=== PATIENT | female | born 1950 | race Caucasian/White ===

== ENCOUNTER → 2017-12-23 09:11 | Outpatient (CLI) | payer MEDICARE, OTHER, SELFPAY ==
--- NOTE | 2017-12-23 09:20 | US_ITS ---
US abdomen complete Ordering Physician: Amadeo Foster Patient Age: 67 years: Female HISTORY: ITS.REASON: ABD PAIN TECHNIQUE: Ultrasound right upper quadrant COMPARISON : FINDINGS Pancreas. Unremarkable Liver. No focal lesions. No blood ductal dilatation. Gallbladder. Trace sludge no gallstones. Common duct normal diameter 2.5 mm and hilum of liver. Spleen. Scattered fairly numerous calcifications at spleen likely account for the echogenic foci. Spleen appears normal size measuring just over 10 cm length Aorta. Atheromatous calcification but no aneurysmal dilatation aorta. Actually relatively modest Slender caliber aorta 1.5 cm proximally & tapering to 1. 2 cm distally. Kidneys appear normal in size and cortex well-maintained. No hydronephrosis nor mass. Right kidney 11 cm length x 4 cm x 5.7 cm Left kidney 10.3 cm in length and 4.5 cm x 4.65 cm. IMPRESSION: ======= No prominent findings. Minor observations Gallbladder. Trace sludge. No gallstones. Liver. Perhaps subtle fatty changes. No focal lesions. Minimal developing atheromatous changes at aorta. No aneurysm Pancreas, kidneys unremarkable.
--- NOTE | 2017-12-23 09:21 | FL_ITS ---
FL upper GI w air, [place] upper GI esophagus w/air Ordering Physician: Amadeo Foster Patient Age: 67 years: Female HISTORY: ITS.REASON: ABD PAINright upper quadrant and upper abdominal pain TECHNIQUE: Air-contrast UGI. 2 minutes 39 seconds. COMPARISON :Chest PA and lateral 03/12/2013. Thyroid ultrasound February 2013 FINDINGS . ESOPHAGUS... Minor observations Cervical Esophagus:. slight indentation upon right aspect lower lower cervical esophagus prominent right thyroid gland. Previous ultrasound and shown the right lobe to be slightly larger than the left and it does slightly indent the lower cervical esophagus. Just inferior to this at the level of sternal notch there is generous indentation upon the lower cervical esophagus due to either prominence of a low cricopharyngeus muscle; however this indentation could well be due to a generous vascular structure indentation. Cannot totally exclude a high aberrant subclavian. However Patient reports no symptoms in this region to raise concern regarding this incidental observation. If Symptoms develop here may warrant with CT neck and chest contrast to further evaluate. Also note cervical degenerative changes with disc space narrowing & cervical spondylosis C5/6 & C6/7. Anterior marginal osteophytes here do not significantly impact the cervical esophagus . Thoracic esophagus: Overall Appears satisfactory The GE junction tapers but is distensible with with no lesion evident. But Mild GE reflux was noted Remaining UGI Stomach Pylorus and Duodenal bulb and loop appear normal... Proximal small bowel appears normal. Normal mucosal pattern. There is fairly rapid transit into the small bowel final film shows contrast passing into the right colon but no small bowel dilatation or obstruction on this image. -----IMPRESSION-------- 1. Stomach, pylorus and duodenum unremarkable this survey study. WNL with No ulceration or filling defect. 2. Mild GE reflux noted. 3. Minor incidental observations cervical esophagus. .... Slight indentation lower cervical esophagus due to the prominent right thyroid lobe,. ... More inferiorly at junction of cervical & thoracic esophagus, note generous posterior indentation esophagus either due to a prominent low cricopharyngeus muscle or possibly prominent vascular structure. However the patient reported no symptoms here.. Note comments in text
== END ==
PROVIDERS: Family Provider Internal Medicine; PCP Internal Medicine; Visit Provider Internal Medicine
DX: R10.11 Right upper quadrant pain (principal)
CPT/HCPCS: 74241; 74247; 76700

== ENCOUNTER → 2018-07-04 11:17 | Outpatient (CLI) | payer MEDICARE, OTHER, SELFPAY ==
[2018-07-04 14:26] LABS: Anion Gap 11.1 mEq/L (5-15); Blood Urea Nitrogen 16 mg/dL (7-18); Calcium 8.9 mg/dL (8.5-10.1); Carbon Dioxide 30 mmol/L (21.0-32.0); Chloride 103 mmol/L (98-107); Creatinine,Serum 0.84 mg/dL (0.55-1.02); Estimated Glomerular Filt Rate 68 ml/min (>60); Free T4 (Free Thyroxine) 1.42 ng/dl (0.76-1.46); GFR (African American) 82 ML/MIN (>60); Glucose 99 mg/dL (74-106); Magnesium 1.8 mg/dL (1.4-2.2); Potassium 4.1 mmoL/L (3.5-5.1); Sodium 140 mmol/L (136-145); Thyroid Stimulating Hormone 0.84 uIU/ml (0.358-3.740)
== END ==
PROVIDERS: Visit Provider Physician Assistant
DX: Z51.81 Encounter for therapeutic drug level monitoring (principal); R42 Dizziness and giddiness; I25.10 Atherosclerotic heart disease of native coronary artery without angina pectoris; I48.91 Unspecified atrial fibrillation
CPT/HCPCS: 36415; 80048; 83735; 84439; 84443; 93225; 93226

== ENCOUNTER → 2018-08-07 08:49 | Outpatient (CLI) | payer MEDICARE, OTHER, SELFPAY ==
--- NOTE | 2018-08-07 09:07 | CI_ITS ---
Cerebrovascular Exam Indications: 780.2 Syncope and collapse. IMPRESSIONS 1. The bilateral vertebral arteries are patent with normal antegrade flow. 2. Study suggests less than 20% stenosis involving the right internal carotid artery and the left internal carotid artery. Carotid duplex study. Complete study and Doppler flow study including spectral analysis, color and pineda scale imaging. Height: Height: 154.9cm. Height: 61in. Weight: Weight: 72.6kg. Weight: 159.7lb. Body mass index: BMI: 30.2kg/m^2. Body surface area: BSA: 1.79m^2. Location: Vascular laboratory. Patient status: Outpatient. Tables: Arterial flow: + +--------+--------+ Location V sys V ed + +--------+--------+ Right CCA - proximal 78.6cm/s 18.9cm/s + +--------+--------+ Right CCA - distal 67.8cm/s 22.6cm/s + +--------+--------+ Right ECA 87.1cm/s -------- + +--------+--------+ Right ICA - proximal 56.8cm/s 19.9cm/s + +--------+--------+ Right ICA - mid 56.2cm/s 21.5cm/s + +--------+--------+ Right ICA - distal 70.6cm/s 29.8cm/s + +--------+--------+ Right vertebral 53.5cm/s -------- + +--------+--------+ Left CCA - proximal 70.6cm/s 24.3cm/s + +--------+--------+ Left CCA - distal 60.1cm/s 18.2cm/s + +--------+--------+ Left ECA 102cm/s -------- + +--------+--------+ Left ICA - proximal 55.2cm/s 18.9cm/s + +--------+--------+ Left ICA - mid 70.7cm/s 27.9cm/s + +--------+--------+ Left ICA - distal 60.2cm/s 24.4cm/s + +--------+--------+ Left vertebral 36.7cm/s -------- + +--------+--------+ Velocity ratios: + + + + + + Right, V sys Right, V ed Left, V sys Left, V ed + + + + + + Max ICA/dist CCA 1.04 1.32 1.18 1.53 + + + + + + (Report amended ) Electronically signed by: Primo Ryan [id number]
--- NOTE | 2018-08-07 09:08 | CA_ITS ---
PROCEDURE: 2-D M-mode and color Doppler study INDICATIONS FOR THE TEST: Chest pain COPD Heart Murmur Tobacco Smoking Palpitations Fatigue SyncopeX Edema HypertensionXDiabetes Mellitus Rheumatic Fever SOB MILLER Obesity Hyperlipidemia Family History HD Additional History DIZZINESS,TIA ,PACEMAKER BUBBLE STUDY DONE PATIENT INFORMATION HEIGHT: 61 WEIGHT:160 GENDER: Female B/P:133/77 2-D/M-MODE INTERPRETATION: 2-D MEASUREMENTS OBSERVED VALUES IN CMS Right Ventricular Dimension (RVDd) 1.3 Interventricular Septum (Thickness)(IVsd) .6 Left Ventricular Internal Dimensions(LVIDd) 5.7 Left Ventricular Posterior Wall (Thickness)(LVPWd) .7 Aortic Root 2.9 Aortic Cusp Separation 1.8 Left Atrial Dimensions (LAD) 2.9 2D 1. Left atrium is mildly enlarged, left ventricle is normal size, mild concentric left ventricular hypertrophy, visually estimated ejection fraction 55% with no regional wall motion abnormality, there is abnormal septal motion. 2. The right atrium and right ventricle are normal size and contractility, there is a pacemaker lead seen right atrium and right ventricle. 3. The aortic valve is minimally thickened and fibrosed leaflet, display mobility. 4. The mitral and tricuspid valve leaflets are minimally thickened. 5. The pulmonic valve is poorly visualized. 6. No significant pericardial effusion noted. DOPPLER INTERROGATION: Doppler interrogation of the aortic, mitral and tricuspid valvular presence of mild mitral and tricuspid regurgitation, calculated right ventricular systolic pressure is 39 mmHg consistent with mild pulmonary hypertension, grade 2 diastolic dysfunction seen with tissue Doppler evidence of raised left atrial pressure. Agitated saline contrast study fails to identify intracardiac shunt. CONCLUSION: 1. Mildly enlarged left atrium, normal left ventricular size, mild concentric left ventricular hypertrophy, visually estimated ejection fraction 55% with no regional wall motion abnormality, there is abnormal septal motion, grade 2 diastolic dysfunction seen with tissue Doppler evidence of raised left atrial pressure. 2. Mild mitral and tricuspid regurgitation, calculated right ventricular systolic pressure 39 mmHg consistent with mild pulmonary hypertension. 3. No significant pericardial effusion noted. 4. Agitated saline contrast study fails to identify intracardiac shunt.
== END ==
PROVIDERS: PCP Internal Medicine; Visit Provider Physician Assistant
DX: R55 Syncope and collapse (principal); R42 Dizziness and giddiness; G45.9 Transient cerebral ischemic attack, unspecified
CPT/HCPCS: 93306; 93880

== ENCOUNTER → 2018-09-19 09:53 | Outpatient (CLI) | payer MEDICARE, OTHER, SELFPAY ==
[2018-09-19 11:09] LABS: Erythrocyte Sedimentation Rate 10 mm/hr (0-30)
[2018-09-19 14:42] LABS: Blood Urea Nitrogen 20 mg/dL (7-18); Calcium 9.4 mg/dL (8.5-10.1); Carbon Dioxide 28 mmol/L (21.0-32.0); Chloride 103 mmol/L (98-107); Creatinine,Serum 0.73 mg/dL (0.55-1.02); Estimated Glomerular Filt Rate 80 ml/min (>60); GFR (African American) 97 ML/MIN (>60); Glucose 101 mg/dL (74-106); Sodium 140 mmol/L (136-145)
[2018-09-20 15:16] LABS: Anti-Centromere B Antibodies <0.2 AI (0.0-0.9); Anti-Jo-1 <0.2 AI (0.0-0.9); Anti-Smith Antibody <0.2 AI (0.0-0.9); Antichromatin Antibodies <0.2 AI (0.0-0.9); Antiscleroderma-70 Antibodies 0.2 AI (0.0-0.9); RNP Antibodies <0.2 AI (0.0-0.9); Sjogren's Anti-SS-A 6.4 AI (0.0-0.9); Sjogren's Anti-SS-B 0.2 AI (0.0-0.9)
[2018-09-20 17:08] LABS: Anti-DNA (DS) Ab Qn 1 IU/mL (0-9)
== END ==
PROVIDERS: PCP Internal Medicine; Visit Provider Specialist
DX: R42 Dizziness and giddiness (principal); R55 Syncope and collapse
CPT/HCPCS: 36415; 80048; 85651; 86225; 86235

== ENCOUNTER → 2018-09-27 08:43 | Outpatient (CLI) | payer MEDICARE, OTHER, SELFPAY ==
--- NOTE | 2018-09-27 08:45 | CT_ITS ---
CT angio neck INDICATION: ITS.REASON: dizziness, lightheaded ORDERING PHYSICIAN: Mery Motta MD PATIENT AGE: 68 years COMPARISON: None TECHNIQUE: Axial images are obtained following the intravenous administration of 100 mL of Isovue-370 performed in conjunction with the neck CT angiogram . Sagittal and coronal reformatted images are reviewed as well. All CT scans at the facility use one or more dose reduction, viz: automated exposure control, ma/kV adjustment per patient size (including targeted exams where dose is matched to indication, i.e. head), or iterative reconstruction technique. FINDINGS: No aneurysm, arteriovenous malformation, or major intracranial occlusive process evident. No enhancing lesions IMPRESSION: Negative CT angiogram of the head
--- NOTE | 2018-09-27 08:45 | CT_ITS ---
CT angio head INDICATION: ITS.REASON: dizziness, lightheaded ORDERING PHYSICIAN: Mery Motta MD PATIENT AGE: 68 years COMPARISON: None TECHNIQUE: Axial images are obtained following the intravenous administration of 100 mL of Isovue-370 contrast. Sagittal and coronal reformatted images are reviewed as well. All CT scans at the facility use one or more dose reduction, viz: automated exposure control, ma/kV adjustment per patient size (including targeted exams where dose is matched to indication, i.e. head), or iterative reconstruction technique. FINDINGS: There is an apparent right subclavian artery traverses posterior to the esophagus. There is a common origin trunk of the right and left carotid arteries. The vertebrals have an unremarkable appearance. The left side is dominant. Right carotid: Right common carotid is unremarkable. The carotid bifurcation and internal carotid artery also have an unremarkable appearance. No stenotic lesions evident. Left carotid: Unremarkable. Left common carotid artery. There is a small amount of calcific plaque at the ostium of the left internal carotid artery but no significant stenosis. Only approximately 20% stenosis of the origin of the left internal carotid artery. Incidental note is made of a 5 mm noncalcified left upper lobe nodule nonspecific IMPRESSION: 1. Aberrant origin of the right subclavian artery. 2. There is a small amount of calcific plaque at the ostium of the left internal carotid artery causing approximately 20% stenosis. 3. 5 mm noncalcified left upper lobe nodule
--- NOTE | 2018-09-27 09:35 | CT_ITS ---
CT head/brain wo/w con HISTORY: ITS.REASON: lightheaded, dizziness, syncope ORDERING PHYSICIAN: Mery Motta MD PATIENT AGE: 68 years COMPARISON: none TECHNIQUE: Axial images obtained without and with contrast. 100 mL Isovue 300 was given IV. Brain and bone windows reviewed. All CT scans at the facility use one or more dose reduction, viz: automated exposure control, ma/kV adjustment per patient size (including targeted exams where dose is matched to indication, i.e. head), or iterative reconstruction technique. FINDINGS: No midline shift, mass effect, intracranial hemorrhage, hydrocephalus, or extra-axial fluid collection is evident. Axial masses or hemorrhage. The calvarium has an unremarkable appearance. No mastoid effusion. No sinus air-fluid levels.. There is a small osteoma in the right frontal area IMPRESSION: Negative CT head without and with contrast
--- NOTE | 2018-09-27 10:10 | HMH.ITSHM ---
Current Home Medications as stated by this patient Phyllis William or wholesale representative. []PRADAXA,LEVOTHYROXINE,STALOL,ATENOLOL,LOSARTIN, ASPIRIN,ROSURVASTATIN
== END ==
PROVIDERS: PCP Internal Medicine; Visit Provider Specialist
DX: R42 Dizziness and giddiness (principal); R55 Syncope and collapse
CPT/HCPCS: 70470; 70496; 70498; Q9967

== ENCOUNTER → 2019-06-14 12:44 | Outpatient (CLI) | payer MEDICARE, OTHER, SELFPAY ==
--- NOTE | 2019-06-14 12:48 | CA_ITS ---
APPROVED REPORT Instructional Coordinator: SHELIA Laterality: Bilateral Study Quality: Adequate Indications: Claudication: Risk Factors Hypertension Hyperlipidemia Cardiac Disease CAD, VELOCITY AND DOPPLER WAVEFORM ANALYSIS RIGHT cm/sec Waveform Severity RESIDENT ASSISTANT 122.5/ Triphasic PFA 79.7/ Triphasic Prox SFA 68.4/ Triphasic Mid SFA 86.8/ Triphasic Dis SFA 89.9/ Triphasic POP 64.9/ Triphasic Post Tibial 101.9/ Triphasic Ant Tib/Dors Ped 38.8/ Triphasic Peroneal 28.7/ Triphasic LEFT cm/sec Waveform Severity RESIDENT ASSISTANT 71.6/ Triphasic PFA 87.3/ Triphasic Prox SFA 67.4/ Triphasic Mid SFA 63.1/ Triphasic Dis SFA 87.3/ Triphasic POP 69.6/ Triphasic Post Tibial 78.6/ Triphasic Ant Tib/Dors Ped 67.9/ Triphasic Peroneal 36.9/ Triphasic Findings No significant elevation of the peak systolic velocity is seen in either lower extremity to suggest a hemodynamically significant stenosis. Conclusion No significant elevation of the peak systolic velocity is seen in either lower extremity to suggest a hemodynamically significant stenosis. Electronically signed by : Primo Ryan MD 06/14/2019 19:16:54
--- NOTE | 2019-06-14 12:50 | US_ITS ---
APPROVED REPORT Exam Type: Lower Extremity Segmental Pressures Bioinformatics Support Specialist: Gail Simmons RDCS Indications Claudication: Risk Factors Hypertension CAD Hyperlipidemia Cardiac Disease Pressures/Indices Right Indices Left Indices Brachial 143.00 mmHg Brachial 131.00 mmHg Low Thigh 156.00 mmHg 1.09 Low Thigh 136.00 mmHg 0.95 Calf 147.00 mmHg 1.03 Calf 150.00 mmHg 1.05 Ankle(PT) 153.00 mmHg 1.07 Ankle(PT) 144.00 mmHg 1.01 Ankle(DP) 144.00 mmHg 1.01 Ankle(DP) 141.00 mmHg 0.99 Digit 130.00 mmHg 0.91 Digit 114.00 mmHg 0.80 Findings R WING 1.1 R TBI .9 L WING 1.0 L TBI .8 NORMAL PULSES AND WAVEFORMS Conclusion No evidence significant arterial disease throughout the right and left lower extremities as evidenced by normal resting PVR waveforms and normal resting indices. Electronically signed by : Primo Ryan MD 06/14/2019 19:15:31
== END ==
PROVIDERS: PCP Internal Medicine; Visit Provider Internal Medicine Cardiovascular Disease
DX: I70.213 Atherosclerosis of native arteries of extremities with intermittent claudication, bilateral legs (principal); M79.605 Pain in left leg; M79.604 Pain in right leg
CPT/HCPCS: 93923; 93925

== ENCOUNTER → 2019-06-29 15:04 | Outpatient (CLI) | payer MEDICARE, OTHER, SELFPAY ==
--- NOTE | 2019-06-29 15:08 | XR_ITS ---
PROCEDURE: XR CHEST 2V CLINICAL HISTORY: RT UPPER CHEST PAIN Cough and congestion COMPARISON: CXR CHEST(2 VIEWS-NOT PORTABLE) from 03/12/2013 CXR1 CHEST-PORTABLE from 07/06/2013 CXR2V XR chest 2V from 07/02/[address] angio neck from 09/27/2018 FINDINGS: Borderline cardiomegaly without failure. Cardiac pacemaker is present by the left subclavian approach through a duplicated superior vena cava with the pacemaker tip along the right heart border in the right atrial region. Chronic changes are present in the right perihilar region. No lobar consolidation or collapse is evident. IMPRESSION: Chronic changes in the right perihilar region. No change with no acute finding. Dictated by: Primo Ryan MD 06/29/2019 15:22 Electronically signed by Primo Ryan MD in [facility] 06/29/2019 15:22
== END ==
PROVIDERS: PCP Internal Medicine; Visit Provider Internal Medicine
DX: R07.89 Other chest pain (principal)
CPT/HCPCS: 71046

== ENCOUNTER 2020-03-06 14:23 | Emergency (ER) | payer MEDICARE, OTHER, SELFPAY ==
[2020-03-06 14:24] VITALS: BP 151/74; PULSE 70; RESP 18; TEMP 36.7; O2SAT 98; BMI 31.1
--- NOTE | 2020-03-06 14:37 | CT_ITS ---
PROCEDURE: CT CERVICAL SPINE WO CON CLINICAL INDICATION: Fall Neck injury with pain, contusion/abrasion or hematoma, cervical sprain/strain the COMPARISON: No exams were available for comparison TECHNIQUE: Axial images obtained with sagittal and coronal reformats. All CT scans at the facility use one or more dose reduction, viz: automated exposure control, ma/kV adjustment per patient size (including targeted exams where dose is matched to indication, i.e. head), or iterative reconstruction technique. Axial spiral CT scanning performed of the cervical spine beginning at the base of the skull and continuing to the upper T-spine. 3-D multiplanar reconstruction with 3-D manipulation of volumetric data set in image rendering was completed by the radiologist and/or technologist with the supervision of the radiologist on independent workstation. FINDINGS: Normal alignment. No acute fracture or dislocation. Bifid spinous process with prominent right portion of the spinous process at C3. Degenerative disc disease C4-C5. Mild right uncovertebral hypertrophy C5-C6 with mild right lateral recess narrowing IMPRESSION: Degenerative changes, no acute fracture Dictated by: Primo Ryan MD 03/06/2020 15:24 Electronically signed by Primo Ryan MD in [facility] 03/06/2020 15:24
--- NOTE | 2020-03-06 14:37 | CT_ITS ---
PROCEDURE: CT FACIAL BONES WO CON CLINICAL HISTORY: Fall Blunt trauma with injury and pain, contusion/abrasion or hematoma following injury, nasal injury with pain COMPARISON: AGHEAD CT angio head from 09/27/2018 TECHNIQUE: Axial images obtained with sagittal and coronal reformats. All CT scans at the facility use one or more dose reduction, viz: automated exposure control, ma/kV adjustment per patient size (including targeted exams where dose is matched to indication, i.e. head), or iterative reconstruction technique. FINDINGS: There is a nondisplaced fracture involving the bilateral nasal ala and the tip of the nasal bone. A lucency is present in the mid aspect of the nasal septum image 42 series 3. This however may be chronic. There is a small air-fluid level in the right maxillary sinus. No other fractures are evident. There is a small osteoma in the right aspect of the frontal sinus. Soft tissue swelling is present at the nasal region and the anterior nasal canal IMPRESSION: Nondisplaced nasal bone fracture. Dictated by: Primo Ryan MD 03/06/2020 15:32 Electronically signed by Primo Ryan MD in [facility] 03/06/2020 15:32
--- NOTE | 2020-03-06 14:37 | CT_ITS ---
PROCEDURE: CT HEAD/BRAIN WO CON CLINICAL INDICATION: Fall COMPARISON: HEADWW CT head/brain wo/w con from 09/27/2018 TECHNIQUE: Axial images obtained. All CT scans at the facility use one or more dose reduction, viz: automated exposure control, ma/kV adjustment per patient size (including targeted exams where dose is matched to indication, i.e. head), or iterative reconstruction technique. FINDINGS: No midline shift, mass effect, intracranial hemorrhage, hydrocephalus, or extra-axial fluid collection is evident. The calvarium has an unremarkable appearance. No mastoid effusion. No sinus air-fluid level. IMPRESSION: No acute intracranial finding Dictated by: Primo Ryan MD 03/06/2020 15:21 Electronically signed by Primo Ryan MD in [facility] 03/06/2020 15:21
[2020-03-06 14:57] VITALS: BP 143/83; PULSE 70; RESP 18; O2SAT 100
--- NOTE | 2020-03-06 15:01 | PC.NURSE ---
pt going to rad
--- NOTE | 2020-03-06 15:47 | HMH.EDFALL ---
ED Disposition Clinical Impression: Nasal bone fracture, Bleeding nose Disposition: Home, Self-Care Condition on Discharge: Good Instructions: Nose Fracture Prescriptions: Hydrocod/Acet 5/325 mg [[place] 5/325mg tablet] 1 tab PO Q6HP PRN #7 tab PRN Reason: Moderate Pain Prescription Printed Referrals: Amadeo Foster [Primary Care Provider] - Paul Jacobson MD [Staff Physician] - 3 days - Critical Care Critical Care Time: No Attestation: On 03/06/20, the high probability of a clinically significant, sudden or life threatening deterioration of the following system(s) required my full and direct attention, intervention and personal management. The time I documented below is in addition to time spent performing reported procedures but includes the following listed in this critical care notation. Medical Decision Making - Medical Records Medical records reviewed: Yes: I reviewed the patient's medical records. - Jasson Inquiry Pt receiving controlled substance: Yes Jasson was queried for this patient: No Reason not queried -: Jasson system downtime Risks and benefits of using a controlled substance: were discussed with pt by me Vital Signs: 03/06/20 14:24 03/06/20 14:57 03/06/20 15:52 Temperature 98.1 F Temperature Source Oral Pulse Rate [Right] 70 70 66 Respiratory Rate 18 18 18 Blood Pressure [Right Arm] 151/74 H 143/83 H 168/86 H Blood Pressure Mean [Right Arm] 99 103 113 Blood Pressure Source [Right Arm] Automatic Cuff Automatic Cuff Blood Pressure Position [Right Arm] Sitting Sitting 02 Sat by Pulse Oximetry 98 100 98 Oxygen Delivery Method Room Air Room Air Orders (Tests/Meds): ED MEDICATIONS Discontinued Medications Generic Name Dose Route Start Last Admin Trade Name Freq PRN Reason Stop Dose Admin Hydrocodone Bitart/Acetaminophen 1 tab 03/06/20 14:44 03/06/20 15:01 [place] 5/325mg Tablet PO 03/06/20 14:45 1 tab ONCE ONE Administration - Radiology Data #2 FINDINGS: There is a nondisplaced fracture involving the bilateral nasal ala and the tip of the nasal bone. A lucency is present in the mid aspect of the nasal septum image 42 series 3. This however may be chronic. There is a small air-fluid level in the right maxillary sinus. No other fractures are evident. There is a small osteoma in the right aspect of the frontal sinus. Soft tissue swelling is present at the nasal region and the anterior nasal canal IMPRESSION: Nondisplaced nasal bone fracture. #3 FINDINGS: Normal alignment. No acute fracture or dislocation. Bifid spinous process with prominent right portion of the spinous process at C3. Degenerative disc disease C4-C5. Mild right uncovertebral hypertrophy C5-C6 with mild right lateral recess narrowing IMPRESSION: Degenerative changes, no acute fracture - CT Data CT Scan: Head Time Received: 15:54 Findings Narrative: FINDINGS: No midline shift, mass effect, intracranial hemorrhage, hydrocephalus, or extra-axial fluid collection is evident. The calvarium has an unremarkable appearance. No mastoid effusion. No sinus air-fluid level. IMPRESSION: No acute intracranial finding - Reevaluation(s) Time: 15:59 Reevaluation #1: On reevaluation, the patient's pain has improved. There is no evidence of bleeding. Repeat exam does not show any septal hematoma. Patient has evidence of a nondisplaced nasal fracture. Patient will given ENT follow-up. Given strict return precautions. Verbalized understanding. Medical Decision Narrative: 69-year-old female presented to the emergency department after accidental A fall. Patient has significant swelling of the nose. Concerning for nasal bone fracture. There is no active bleeding from the nasal nares at this time. No evidence of posterior bleed. Patient meets imaging criteria for the head and cervical spine. Fall HPI - General Chief Compla
[2020-03-06 15:52] VITALS: BP 168/86; PULSE 66; RESP 18; O2SAT 98
--- NOTE | 2020-03-06 15:53 | PC.NURSE ---
checked on pt to see if see needed anything
[2020-03-06 16:04] VITALS: BP 161/90; PULSE 80; RESP 18; TEMP 36.8; O2SAT 98
== END 2020-03-06 16:13 | disposition home or self-care (01) ==
PROVIDERS: Emergency Provider Emergency Medicine; PCP Internal Medicine
DX: S02.2XXA Fracture of nasal bones, initial encounter for closed fracture (principal); W01.198A Fall on same level from slipping, tripping and stumbling with subsequent striking against other object, initial encounter; Y92.480 Sidewalk as the place of occurrence of the external cause; I25.10 Atherosclerotic heart disease of native coronary artery without angina pectoris; I48.91 Unspecified atrial fibrillation; I25.2 Old myocardial infarction; E03.9 Hypothyroidism, unspecified; Z79.899 Other long term (current) drug therapy
CPT/HCPCS: 70450; 70486; 72125; 99282

== ENCOUNTER → 2020-03-12 10:06 | Outpatient (CLI) | payer MEDICARE, OTHER, SELFPAY ==
[2020-03-12 10:28] LABS: Basophils # 0.1 K/mm3 (0-0.2); Basophils % 0.6 % (0.1-2.0); Eosinophils # 0.2 K/mm3 (0.0-0.4); Eosinophils % 2.6 % (0.1-12.0); Hematocrit 44.9 % (37.0-47.0); Hemoglobin 15.1 g/dL (12.2-16.2); Lymphocytes # 2.3 K/mm3 (0.7-4.5); Lymphocytes % 26.3 % (10-50); Mean Corpuscular HGB Conc 33.8 g/dL (31.8-35.4); Mean Corpuscular Hemoglobin 31.1 pg (27.0-31.2); Monocytes # 0.6 K/mm3 (0.1-1.0); Monocytes % 6.5 % (1.7-9.3); Neutrophils # 5.5 K/mm3 (1.8-7.8); Platelet Count 198 K/mm3 (142-424); Red Blood Count 4.87 M/mm3 (4.20-5.40); Red Cell Distribution Width 13.3 % (11.5-17.5); White Blood Count 8.6 K/mm3 (4.8-10.8)
[2020-03-12 15:52] LABS: Chloride 100 mmol/L (98-107); Potassium 4.6 mmoL/L (3.5-5.1); Sodium 141 mmol/L (136-145)
[2020-03-12 15:54] LABS: Alanine Aminotransferase 22 U/L (12-78); Anion Gap 14.6 mEq/L (5-15); Aspartate Amino Transferase 33 U/L (14-36); Blood Urea Nitrogen 18 mg/dl (7-17); Carbon Dioxide 31 mmol/L (22.0-30.0); Estimated Glomerular Filt Rate 83 ml/min (>60); GFR (African American) 101 ML/MIN (>60)
[2020-03-12 15:55] LABS: Albumin Level 4.2 g/dl (3.5-5.0); Albumin/Globulin Ratio 1.4 (1.1-1.8); Alkaline Phosphatase 64 U/L (38-126); Calcium 9.5 mg/dl (8.4-10.2); Glucose 105 mg/dl (74-100); HDL Cholesterol 49 mg/dl (40-60); Total Protein,Serum 7.2 g/dl (6.3-8.2)
[2020-03-12 15:56] LABS: Cholesterol 147 mg/dl (140-200); Triglycerides 143 mg/dl (30-150); VLDL Cholesterol 29 mg/dL (0-40)
[2020-03-12 16:06] LABS: Direct LDL Cholesterol 79.94 mg/dL (100-129)
== END ==
PROVIDERS: Visit Provider Internal Medicine
DX: I10 Essential (primary) hypertension (principal); I25.10 Atherosclerotic heart disease of native coronary artery without angina pectoris; E78.5 Hyperlipidemia, unspecified
CPT/HCPCS: 36415; 80053; 80061; 85025

== ENCOUNTER 2021-01-14 12:21 | Emergency (ER) | payer MEDICARE, OTHER, SELFPAY ==
[2021-01-14 12:22] VITALS: BP 159/91; PULSE 70; RESP 18; TEMP 36.6; O2SAT 97; BMI 31.5
--- NOTE | 2021-01-14 12:25 | ECG_ITS ---
APPROVED REPORT Exam: Resting ECG HR:72 bpm ECG Measurements Heart Rate 72 AXES QRSd 120 QRS -59 QT 470 T -10 QTc 514 Conclusion Electronic atrial pacemaker Left axis deviation Right bundle branch block Abnormal ECG Electronically signed by : Gary Colon, 01/16/2021 09:07:58
[2021-01-14 12:30] VITALS: BP 154/85; PULSE 64; RESP 14; O2SAT 99
[2021-01-14 12:53] LABS: Basophils # 0.1 K/mm3 (0-0.2); Basophils % 1.4 % (0.1-2.0); Eosinophils # 0.3 K/mm3 (0.0-0.4); Eosinophils % 2.6 % (0.1-12.0); Hematocrit 45.7 % (37.0-47.0); Hemoglobin 15.2 g/dL (12.2-16.2); Lymphocytes # 3.1 K/mm3 (0.7-4.5); Lymphocytes % 29.7 % (10-50); Mean Corpuscular HGB Conc 33.3 g/dL (31.8-35.4); Mean Corpuscular Hemoglobin 29.7 pg (27.0-31.2); Mean Corpuscular Volume 89.3 fl (81-99); Mean Platelet Volume 8.3 fl (7.4-10.4); Monocytes # 0.8 K/mm3 (0.1-1.0); Monocytes % 7.5 % (1.7-9.3); Neutrophils # 6.2 K/mm3 (1.8-7.8); Neutrophils % 58.7 % (37.0-80.0); Platelet Count 249 K/mm3 (142-424); Red Blood Count 5.11 M/mm3 (4.20-5.40); Red Cell Distribution Width 13.7 % (11.5-17.5); White Blood Count 10.6 K/mm3 (4.8-10.8)
[2021-01-14 12:56] LABS: Chloride 104 mmol/L (98-107); Sodium 139 mmol/L (136-145)
[2021-01-14 12:59] LABS: Alanine Aminotransferase 28 U/L (12-78); Albumin Level 4.7 g/dl (3.5-5.0); Albumin/Globulin Ratio 1.4 (1.1-1.8); Alkaline Phosphatase 82 U/L (38-126); Aspartate Amino Transferase 43 U/L (14-36); Bilirubin,Total 1.1 mg/dl (0.2-1.3); Blood Urea Nitrogen 22 mg/dl (7-17); Carbon Dioxide 25 mmol/L (22.0-30.0); Creatinine Clearance Estimated 64 mL/min (50-200); Estimated Glomerular Filt Rate 83 ml/min (>60); GFR (African American) 101 ML/MIN (>60); Globulin 3.3 g/dL (1.3-3.2)
[2021-01-14 13:00] LABS: Calcium 10.1 mg/dl (8.4-10.2); Glucose 161 mg/dl (74-100)
[2021-01-14 13:01] VITALS: BP 163/91; PULSE 71; RESP 16; O2SAT 100
--- NOTE | 2021-01-14 13:04 | CT_ITS ---
PROCEDURE: CT HEAD/BRAIN WO CON CLINICAL INDICATION: constant vertigo, afib on Eliquis COMPARISON: CT CT HEAD/BRAIN WO CON from 03/06/2020 TECHNIQUE: Axial images obtained. All CT scans at the facility use one or more dose reduction, viz: automated exposure control, ma/kV adjustment per patient size (including targeted exams where dose is matched to indication, i.e. head), or iterative reconstruction technique. FINDINGS: No midline shift, mass effect, intracranial hemorrhage, hydrocephalus, or extra-axial fluid collection is evident. The calvarium has an unremarkable appearance. No mastoid effusion. There is a small air-fluid level in the right maxillary sinus mild mucosal thickening of the ethmoid sinuses and a small osteoma in the right frontal IMPRESSION: No acute intracranial finding Mild sinus disease Dictated by: Primo Ryan MD 01/14/2021 13:58 Primo Ryan MD in [facility] 01/14/2021 13:58
--- NOTE | 2021-01-14 13:04 | CT_ITS ---
Procedure: CT ANGIO NECK CTA HEAD CLINICAL HISTORY: constant vertigo, afib on Eliquis COMPARISON: CT AGNECK CT angio neck from 09/27/[address] ANGIO HEAD from 01/14/2021 TECHNIQUE: IV Contrast: 100ml Isovue 370 Axial images obtained with sagittal and coronal reformats. All CT scans at the facility use one or more dose reduction, viz: automated exposure control, ma/kV adjustment per patient size (including targeted exams where dose is matched to indication, i.e. head), or iterative reconstruction technique. 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 Mild atheromatous changes of the aorta. The right common carotid and internal carotid are unremarkable. Unremarkable appearing left common carotid and internal carotid. There is some eccentric calcific plaque in the left vertebral artery at the C3 level causing less than 40 percent stenosis. The right vertebral artery has an unremarkable appearance. CTA head: No aneurysm, AVM, dissection, or major intracranial occlusive process apparent. There is persistent origin of the right posterior cerebral artery. No intracranial enhancing lesions. No midline shift or mass effect. Delayed images show no obvious sinus thrombosis. Upper thoracic images shows a stable 5 mm nodule in the left upper lobe. There is thickening of the upper cervical esophagus. IMPRESSION: 1. Negative CTA neck. 2. Negative CTA head Dictated by: Primo Ryan MD 01/14/2021 14:09 Primo Ryan MD in [place] 01/14/2021 14:09
--- NOTE | 2021-01-14 13:07 | HMH.EDDIZZ ---
ED Disposition Clinical Impression: Benign paroxysmal positional vertigo Qualifiers: Laterality: right Qualified Code(s): H81.11 - Benign paroxysmal vertigo, right ear Disposition: Home, Self-Care Condition on Discharge: Good Instructions: DI for Benign Paroxysmal Positional Vertigo Prescriptions: diazePAM [Valium 5mg tablets] 5 mg PO TID PRN #9 tablet PRN Reason: Vertigo Transmission Status: Received by [id number] Referrals: Amadeo Foster [Primary Care Provider] - 3 days Paul Jacobson MD [Staff Physician] - 01/16/21 - Critical Care Critical Care Time: No Attestation: On 01/14/21, the high probability of a clinically significant, sudden or life threatening deterioration of the following system(s) required my full and direct attention, intervention and personal management. The time I documented below is in addition to time spent performing reported procedures but includes the following listed in this critical care notation. Medical Decision Making - Medical Records Medical records reviewed: Yes: I reviewed the patient's medical records. - Jasson Inquiry Pt receiving controlled substance: No Vital Signs: 01/14/21 12:22 01/14/21 12:30 01/14/21 13:01 Temperature 97.9 F Temperature Source Oral Pulse Rate 64 71 Pulse Rate [Right Radial] 70 Respiratory Rate 18 14 16 Blood Pressure 154/85 H 163/91 H Blood Pressure [Right Arm] 159/91 H Blood Pressure Mean 121 115 Blood Pressure Mean [Right Arm] 113 Blood Pressure Source [Right Arm] Automatic Cuff Blood Pressure Position [Right Arm] Sitting 02 Sat by Pulse Oximetry 97 99 100 Oxygen Delivery Method Room Air 01/14/21 14:00 01/14/21 14:30 Temperature Temperature Source Pulse Rate 69 68 Pulse Rate [Right Radial] Respiratory Rate 16 16 Blood Pressure 153/85 H 154/80 H Blood Pressure [Right Arm] Blood Pressure Mean 125 128 Blood Pressure Mean [Right Arm] Blood Pressure Source [Right Arm] Blood Pressure Position [Right Arm] 02 Sat by Pulse Oximetry 94 L 97 Oxygen Delivery Method - Lab Data Lab results reviewed: Yes: I reviewed the patient's lab results. Lab Results 01/14/21 12:39: WBC 10.6, RBC 5.11, Hgb 15.2, Hct 45.7, MCV 89.3, MCH 29.7, MCHC 33.3, RDW 13.7, Plt Count 249, MPV 8.3, Neut % (Auto) 58.7, Lymph % (Auto) 29.7, [place] % (Auto) 7.5, Eos % (Auto) 2.6, Baso % (Auto) 1.4, Neut # (Auto) 6.2, Lymph # (Auto) 3.1, [place] # (Auto) 0.8, Eos # (Auto) 0.3, Baso # (Auto) 0.1 01/14/21 12:39: Sodium 139, Potassium 4.0, Chloride 104, Carbon Dioxide 25, Anion Gap 14.0, BUN 22 H, Creatinine 0.70, Estimated Creat Clear 64, Estimated GFR 83, Est GFR ( Amer) 101, Glucose 161 H, Calcium 10.1, Total Bilirubin 1.1, AST 43 H, ALT 28, Alkaline Phosphatase 82, Troponin I < 0.01, Total Protein 8.0, Albumin 4.7, Globulin 3.3 H, Albumin/Globulin Ratio 1.4 01/14/21 14:45: Urine Color Yellow, Urine Appearance Clear, Urine pH 6.0, Ur Specific [place] <= 1.005, Urine Protein Negative, Urine Glucose (UA) Negative, Urine Ketones Negative, Urine Blood Negative, Urine Nitrate Negative, Urine Bilirubin Negative, Urine Urobilinogen 0.2, Ur Leukocyte Esterase Negative Result diagrams: 01/14/21 12:39 01/14/21 12:39 Orders (Tests/Meds): ED MEDICATIONS Discontinued Medications Generic Name Dose Route Start Last Admin Trade Name Freq PRN Reason Stop Dose Admin Diazepam 5 mg 01/14/21 13:07 01/14/21 13:47 Diazepam 5mg Tablet PO 01/14/21 13:08 5 mg ONCE ONE Administration Sodium Chloride 1,000 mls @ 999 mls/hr 01/14/21 12:45 01/14/21 12:37 Sod Chlor 0.9% 1000ml Bag IV 01/14/21 13:45 999 mls/hr .Q1H1M SUJATHA Administration Iopamidol 100 ml 01/14/21 13:26 01/14/21 13:28 Iopamidol-370 (76%);100ml Bottle IV 01/14/21 13:27 100 ml ONCE ONE Administration Ondansetron HCl 4 mg 01/14/21 12:34 01/14/21 12:38 Ondansetron 4mg/2ml Vial IV 01/14/21 12:35 4 mg ONCE ONE Administration Sodium Chlorid
--- NOTE | 2021-01-14 13:10 | PC.NURSE ---
pt to CT
[2021-01-14 13:15] LABS: Troponin I < 0.01 ng/ml (0.00-0.034)
[2021-01-14 14:00] VITALS: BP 153/85; PULSE 69; RESP 16; O2SAT 94
[2021-01-14 14:30] VITALS: BP 154/80; PULSE 68; RESP 16; O2SAT 97
[2021-01-14 14:49] LABS: Microscopic, Urine URINE MICROSCOPIC (MICROSCOPIC)
--- NOTE | 2021-01-14 14:49 | PC.NURSE ---
pt to bathroom via wheelchair per staff assistance r/t pt continues to feel dizzy. Pt tolerated transfer to bed to wheelchair and up and down from toilet well. Will continue to monitor. Pt drinking gingerale at this time, family at BS
[2021-01-14 14:52] LABS: Appearance,Urine CLEAR (Clear); Bilirubin,Urine Negative (Negative); Blood, Urine Negative (Negative); Color,Urine YELLOW (Yellow); Glucose,Urine (UA) Negative (Negative); Ketones,Urine Negative (Negative); Leukocyte Esterase,Urine Negative (Negative); Nitrate,Urine Negative (Negative); Protein,Urine Negative (Negative); Specific Gravity, Urine <= 1.005 (1.005-1.030); Urobilinogen,Urine 0.2 EU/dl (0.2)
[2021-01-14 15:00] VITALS: BP 136/86; PULSE 70; RESP 16; TEMP 36.8; O2SAT 98
== END 2021-01-14 15:34 | disposition home or self-care (01) ==
PROVIDERS: Emergency Provider Emergency Medicine; PCP Internal Medicine
DX: H81.11 Benign paroxysmal vertigo, right ear (principal); I10 Essential (primary) hypertension; I48.0 Paroxysmal atrial fibrillation; I25.2 Old myocardial infarction; Z95.0 Presence of cardiac pacemaker
CPT/HCPCS: 70450; 70496; 70498; 80053; 81001; 84484; 85025; 93005; 96365; 99283; J2405; Q9967

== ENCOUNTER → 2021-06-24 14:05 | Outpatient (CLI) | payer MEDICARE, OTHER, SELFPAY ==
[2021-06-24 15:08] LABS: Sodium 139 mmol/L (136-145)
[2021-06-24 15:09] LABS: Chloride 101 mmol/L (98-107)
[2021-06-24 15:11] LABS: Blood Urea Nitrogen 14 mg/dl (7-17); Estimated Glomerular Filt Rate 99 ml/min (>60); GFR (African American) 120 ML/MIN (>60)
[2021-06-24 15:12] LABS: Glucose 87 mg/dl (74-100); Magnesium 1.8 mg/dl (1.6-2.3)
[2021-06-24 15:13] LABS: Calcium 9.1 mg/dl (8.4-10.2); Carbon Dioxide 28 mmol/L (22.0-30.0)
== END ==
PROVIDERS: Visit Provider Internal Medicine
DX: I25.10 Atherosclerotic heart disease of native coronary artery without angina pectoris (principal); I10 Essential (primary) hypertension; I48.91 Unspecified atrial fibrillation; E83.42 Hypomagnesemia; E78.5 Hyperlipidemia, unspecified
CPT/HCPCS: 80048; 83735

== ENCOUNTER → 2021-07-20 13:04 | Outpatient (CLI) | payer MEDICARE, OTHER, SELFPAY | PROVIDERS: PCP Internal Medicine; Visit Provider Nurse Practitioner | DX: U07.1 COVID-19 (principal) | CPT/HCPCS: C9803; U0003; U0005 ==

== ENCOUNTER → 2021-07-24 08:35 | Outpatient (CLI) | payer MEDICARE, OTHER, SELFPAY ==
[2021-07-24] VITALS (7 sets, daily range): BP systolic 124–152; BP diastolic 77–83; PULSE 70–73; RESP 18; TEMP 36.3; O2SAT 96–97
== END | disposition home or self-care (01) ==
DX: U07.1 COVID-19 (principal); Z23 Encounter for immunization
CPT/HCPCS: 96365

== ENCOUNTER → 2021-09-16 12:40 | Outpatient (CLI) | payer MEDICARE, OTHER, SELFPAY ==
[2021-09-16 13:14] LABS: Basophils # 0.1 K/mm3 (0-0.2); Basophils % 1.1 % (0.1-2.0); Eosinophils # 0.2 K/mm3 (0.0-0.4); Eosinophils % 2.6 % (0.1-12.0); Hematocrit 45.1 % (37.0-47.0); Hemoglobin 14.5 g/dL (12.2-16.2); Lymphocytes # 2.1 K/mm3 (0.7-4.5); Lymphocytes % 28.6 % (10-50); Mean Corpuscular Hemoglobin 30.8 pg (27.0-31.2); Mean Corpuscular Volume 96.2 fl (81-99); Mean Platelet Volume 8.7 fl (7.4-10.4); Monocytes # 0.7 K/mm3 (0.1-1.0); Monocytes % 9.2 % (1.7-9.3); Neutrophils # 4.2 K/mm3 (1.8-7.8); Neutrophils % 58.6 % (37.0-80.0); Platelet Count 282 K/mm3 (142-424); Red Blood Count 4.69 M/mm3 (4.20-5.40); Red Cell Distribution Width 13.5 % (11.5-17.5); White Blood Count 7.2 K/mm3 (4.8-10.8)
[2021-09-16 14:02] LABS: Chloride 100 mmol/L (98-107); Sodium 141 mmol/L (136-145)
[2021-09-16 14:03] LABS: Potassium 4.6 mmoL/L (3.5-5.1)
[2021-09-16 14:05] LABS: Alanine Aminotransferase 21 U/L (12-78); Alkaline Phosphatase 69 U/L (38-126); Anion Gap 11.6 mEq/L (5-15); Aspartate Amino Transferase 33 U/L (14-36); Bilirubin,Total 0.8 mg/dl (0.2-1.3); Blood Urea Nitrogen 20 mg/dl (7-17); Carbon Dioxide 34 mmol/L (22.0-30.0); Cholesterol 159 mg/dl (140-200); Estimated Glomerular Filt Rate 83 ml/min (>60); GFR (African American) 100 ML/MIN (>60); Triglycerides 153 mg/dl (30-150); VLDL Cholesterol 31 mg/dL (0-40)
[2021-09-16 14:06] LABS: Albumin Level 4.1 g/dl (3.5-5.0); Albumin/Globulin Ratio 1.4 (1.1-1.8); Calcium 9.2 mg/dl (8.4-10.2); Chol/HDL Ratio 3.5 (1-3.5); Globulin 2.9 g/dL (1.3-3.2); Glucose 88 mg/dl (74-100); HDL Cholesterol 45 mg/dl (40-60); Magnesium 1.8 mg/dl (1.6-2.3)
[2021-09-16 14:17] LABS: Direct LDL Cholesterol 91.06 mg/dL (100-129)
[2021-09-16 14:35] LABS: Thyroid Stimulating Hormone 2.43 uIU/mL (0.465-4.68)
== END ==
PROVIDERS: Visit Provider Internal Medicine
DX: E03.9 Hypothyroidism, unspecified (principal); E78.5 Hyperlipidemia, unspecified; I10 Essential (primary) hypertension; I25.2 Old myocardial infarction
CPT/HCPCS: 80053; 80061; 83735; 84443; 85025

== ENCOUNTER → 2021-10-06 10:17 | Outpatient (CLI) | payer MEDICARE, OTHER, SELFPAY ==
--- NOTE | 2021-10-06 10:38 | XR_ITS ---
FINAL REPORT CLINICAL HISTORY: EPIGASTRIC PAIN,NAUSEA COMPARISON: 07/20/2019 FINDINGS: 3 VIEW ABDOMEN WITH CHEST Chest: A single view of the chest demonstrates cardiomegaly and a left subclavian pacer. There is improved pulmonary vascular congestion. There are mild right lung opacities, favor scar. Abdomen: Flat and upright views of the abdomen demonstrate multiple air and fluid-filled bowel loops in a nonspecific pattern, may represent ileus or enteritis. There are mild degenerative changes of the spine. IMPRESSION: Ileus versus enteritis. Reviewed, Interpreted and Dictated by Arnaldo Ford III, MD Transcribed by Allison El Authenticated by Arnaldo Ford III, MD on 10/06/2021 11:37:24 AM [facility]
[2021-10-06 10:41] LABS: Basophils # 0.2 K/mm3 (0-0.2); Basophils % 1.8 % (0.1-2.0); Eosinophils # 0.2 K/mm3 (0.0-0.4); Eosinophils % 1.6 % (0.1-12.0); Hematocrit 49.5 % (37.0-47.0); Hemoglobin 15.6 g/dL (12.2-16.2); Lymphocytes % 20.8 % (10-50); Mean Corpuscular HGB Conc 31.4 g/dL (31.8-35.4); Mean Corpuscular Hemoglobin 30.4 pg (27.0-31.2); Mean Corpuscular Volume 96.9 fl (81-99); Mean Platelet Volume 8.1 fl (7.4-10.4); Monocytes # 0.6 K/mm3 (0.1-1.0); Neutrophils # 6.8 K/mm3 (1.8-7.8); Neutrophils % 69.7 % (37.0-80.0); Platelet Count 219 K/mm3 (142-424); Red Blood Count 5.11 M/mm3 (4.20-5.40); White Blood Count 9.8 K/mm3 (4.8-10.8)
[2021-10-06 10:47] LABS: Chloride 98 mmol/L (98-107); Potassium 4.3 mmoL/L (3.5-5.1); Sodium 134 mmol/L (136-145)
[2021-10-06 10:49] LABS: Alanine Aminotransferase 24 U/L (12-78); Amylase 76 U/L (30-110); Blood Urea Nitrogen 14 mg/dl (7-17); Estimated Glomerular Filt Rate 83 ml/min (>60); GFR (African American) 100 ML/MIN (>60)
[2021-10-06 10:50] LABS: Albumin Level 4.6 g/dl (3.5-5.0); Albumin/Globulin Ratio 1.4 (1.1-1.8); Alkaline Phosphatase 76 U/L (38-126); Anion Gap 8.3 mEq/L (5-15); Aspartate Amino Transferase 36 U/L (14-36); Bilirubin,Total 1.5 mg/dl (0.2-1.3); Calcium 9.8 mg/dl (8.4-10.2); Carbon Dioxide 32 mmol/L (22.0-30.0); Globulin 3.4 g/dL (1.3-3.2); Glucose 122 mg/dl (74-100)
== END ==
PROVIDERS: PCP Internal Medicine; Visit Provider Internal Medicine
DX: R10.13 Epigastric pain (principal); R11.0 Nausea; K52.9 Noninfective gastroenteritis and colitis, unspecified
CPT/HCPCS: 36415; 74021; 80053; 82150; 85025

== ENCOUNTER → 2021-10-09 08:14 | Outpatient (CLI) | payer MEDICARE, OTHER, SELFPAY ==
--- NOTE | 2021-10-09 08:16 | US_ITS ---
FINAL REPORT CLINICAL HISTORY: EPIGASTRIC PAIN; bilat flank pain FINDINGS: ABDOMINAL ULTRASOUND COMPLETE: TECHNIQUE: Ultrasound images of the abdomen were obtained. The pancreas is partially obscured. There is mild fatty infiltration of the liver. The gallbladder is normal. The common duct is normal. The right kidney measures 12 cm in length and is normal in echogenicity without hydronephrosis. The left kidney measures 11.4 cm in length and is normal in echogenicity without hydronephrosis. There is a probable 7 mm cyst in the left kidney. The spleen is unremarkable. The aorta is normal in caliber. The vena cava is unremarkable. IMPRESSION: Mild fatty infiltration of the liver. Probable left renal cyst. Reviewed, Interpreted and Dictated by Arnaldo Ford III, MD Transcribed by Allison El Authenticated by Arnaldo Ford III, MD on 10/09/2021 10:13:39 AM [facility]
== END ==
PROVIDERS: PCP Internal Medicine; Visit Provider Internal Medicine
DX: R10.13 Epigastric pain (principal); E80.7 Disorder of bilirubin metabolism, unspecified
CPT/HCPCS: 76700

== ENCOUNTER → 2021-10-16 11:50 | Outpatient (CLI) | payer MEDICARE, OTHER, SELFPAY ==
[2021-10-17 09:21] LABS: Covid-19 Nasal PCR Sendout Lex NOT DETECTED
== END ==
PROVIDERS: PCP Internal Medicine; Visit Provider Nurse Practitioner
DX: Z20.822 Contact with and (suspected) exposure to COVID-19 (principal)
CPT/HCPCS: C9803; U0004; U0005

== ENCOUNTER → 2021-11-04 11:32 | Outpatient (CLI) | payer MEDICARE, OTHER, SELFPAY ==
--- NOTE | 2021-11-04 11:37 | CT_ITS ---
FINAL REPORT CLINICAL HISTORY: LOW GRADE FEVER, LLQ PAIN FINDINGS: Technique: Axial images through the abdomen and pelvis were performed by computed tomography. This study was performed with techniques to keep radiation doses as low as reasonably achievable (ALARA). Individualized dose reduction techniques using automated exposure control or adjustment of mA and/or kV according to the patient's size were employed. Abdomen: There are several calcified granulomas in the lung bases. The liver is normal in size and attenuation. The spleen is unremarkable. The pancreas is normal. The adrenals are normal. The aorta is normal in caliber. There is no hydronephrosis. There is no nephrolithiasis. Pelvis: The appendix is unremarkable. There is sigmoid diverticulosis. There is inflammation adjacent to the proximal sigmoid colon consistent with acute diverticulitis. There is no evidence of abscess or bowel obstruction. The urinary bladder is unremarkable. There is no free fluid or adenopathy. IMPRESSION: Acute sigmoid diverticulitis. Reviewed, Interpreted and Dictated by Arnaldo Ford III, MD Transcribed by Allison El Authenticated by Arnaldo Ford III, MD on 11/04/2021 12:54:46 PM [facility]
== END ==
PROVIDERS: PCP Internal Medicine; Visit Provider Internal Medicine
DX: R10.32 Left lower quadrant pain (principal); R59.0 Localized enlarged lymph nodes
CPT/HCPCS: 74176

== ENCOUNTER → 2022-03-24 12:19 | Outpatient (CLI) | payer MEDICARE, OTHER, SELFPAY ==
[2022-03-24 13:07] LABS: Basophils # 0.1 K/mm3 (0-0.2); Basophils % 1.6 % (0.1-2.0); Eosinophils # 0.2 K/mm3 (0.0-0.4); Eosinophils % 3.2 % (0.1-12.0); Hematocrit 46.5 % (37.0-47.0); Hemoglobin 14.6 g/dL (12.2-16.2); Lymphocytes # 1.8 K/mm3 (0.7-4.5); Lymphocytes % 33.8 % (10-50); Mean Corpuscular HGB Conc 31.5 g/dL (31.8-35.4); Mean Corpuscular Hemoglobin 29.8 pg (27.0-31.2); Mean Corpuscular Volume 94.8 fl (81-99); Mean Platelet Volume 8.9 fl (7.4-10.4); Monocytes # 0.5 K/mm3 (0.1-1.0); Monocytes % 9.5 % (1.7-9.3); Neutrophils # 2.8 K/mm3 (1.8-7.8); Neutrophils % 51.9 % (37.0-80.0); Platelet Count 218 K/mm3 (142-424); Red Blood Count 4.91 M/mm3 (4.20-5.40); Red Cell Distribution Width 14.2 % (11.5-17.5); White Blood Count 5.4 K/mm3 (4.8-10.8)
[2022-03-24 13:47] LABS: Alanine Aminotransferase 26 U/L (12-78); Albumin Level 3.9 g/dl (3.5-5.0); Albumin/Globulin Ratio 1.3 (1.1-1.8); Alkaline Phosphatase 75 U/L (38-126); Anion Gap 11.2 mEq/L (5-15); Aspartate Amino Transferase 32 U/L (14-36); Bilirubin,Total 0.8 mg/dl (0.2-1.3); Blood Urea Nitrogen 15 mg/dl (7-17); Calcium 9.2 mg/dl (8.4-10.2); Carbon Dioxide 27 mmol/L (22.0-30.0); Chloride 105 mmol/L (98-107); Chol/HDL Ratio 3.4 (1-3.5); Cholesterol 146 mg/dl (140-200); Estimated Glomerular Filt Rate 122 ml/min (>60); GFR (African American) 148 ML/MIN (>60); Glucose 95 mg/dl (74-100); HDL Cholesterol 43 mg/dl (40-60); Magnesium 1.8 mg/dl (1.6-2.3); Potassium 4.2 mmoL/L (3.5-5.1); Sodium 139 mmol/L (136-145); Total Protein,Serum 6.9 g/dl (6.3-8.2); Triglycerides 121 mg/dl (30-150); VLDL Cholesterol 24 mg/dL (0-40)
[2022-03-24 14:16] LABS: Thyroid Stimulating Hormone 1.39 uIU/mL (0.465-4.68)
== END ==
PROVIDERS: PCP Internal Medicine; Visit Provider Internal Medicine
DX: I25.10 Atherosclerotic heart disease of native coronary artery without angina pectoris (principal); I25.2 Old myocardial infarction; I49.5 Sick sinus syndrome; I10 Essential (primary) hypertension; E03.9 Hypothyroidism, unspecified; E78.5 Hyperlipidemia, unspecified; R73.01 Impaired fasting glucose
CPT/HCPCS: 80053; 80061; 83735; 84443; 85025

== ENCOUNTER → 2022-07-07 11:09 | Outpatient (CLI) | payer MEDICARE, OTHER, SELFPAY ==
--- NOTE | 2022-07-07 11:16 | CT_ITS ---
FINAL REPORT TECHNIQUE: Axial images through the abdomen and pelvis were performed without contrast. This study was performed with techniques to keep radiation doses as low as reasonably achievable, (ALARA). Individualized dose reduction techniques using automated exposure control or adjustment of mA and/or kV according to the patient's size were employed. CLINICAL HISTORY: L LQ PAIN, SUPRA PUBIC PAIN, DIARRHEA COMPARISON: October 2021 FINDINGS: Abdomen: There is streak artifact from pacemaker leads. There are calcified granulomas in the lung bases. There is mild scarring in the lung bases.. The liver parenchyma is homogeneous. The gallbladder is present. There are calcified granulomas in the spleen. The pancreas, adrenals and kidneys are unremarkable. Pelvis: The urinary bladder is unremarkable. The appendix is not visualized. There is abnormal mucosal edema in the proximal sigmoid colon with surrounding inflammatory reaction consistent with acute uncomplicated diverticulitis. IMPRESSION: Acute uncomplicated sigmoid diverticulitis. Reviewed, Interpreted and Dictated by Adryan Yepez MD Transcribed by Tino Diaz Authenticated and [facility]
== END ==
PROVIDERS: PCP Internal Medicine; Visit Provider Internal Medicine
DX: R10.32 Left lower quadrant pain (principal); R10.2 Pelvic and perineal pain; R19.7 Diarrhea, unspecified
CPT/HCPCS: 74176

== ENCOUNTER → 2022-08-06 15:09 | Outpatient (CLI) | payer MEDICARE, OTHER, SELFPAY ==
[2022-08-06 15:16] LABS: Adenovirus F 40/41, stool Not Detected (NotDetected); Astrovirus Not Detected (NotDetected); Campylobacter Not Detected (NotDetected); Cryptosporidium Not Detected (NotDetected); Cyclospora Cayetanesis Not Detected (NotDetected); Entamoeba histolytica Not Detected (NotDetected); Enteroaggregative E coli Not Detected (NotDetected); Enteropathogenic E coli Not Detected (NotDetected); Enterotoxigenic E coli Not Detected (NotDetected); Giardia lamblia Not Detected (NotDetected); Norovirus Not Detected (NotDetected); Plesimonas Shigalloides, PCR Not Detected (NotDetected); Rotavirus A Not Detected (NotDetected); Salmonella, PCR Not Detected (NotDetected); Sapovirus Not Detected (NotDetected); Shiga-like toxin E coli Not Detected (NotDetected); Shigella Enterovasive E coli Not Detected (NotDetected); Vibrio Cholerae Not Detected (NotDetected); Vibrio, PCR Not Detected (NotDetected); Yersinia Entercolitica, PCR Not Detected (NotDetected)
[2022-08-06 15:55] LABS: Occult Blood,Stool Positive (Negative)
[2022-08-06 20:53] LABS: Clostridium Difficile A/B, PCR Detected (NotDetected)
== END ==
PROVIDERS: PCP Internal Medicine; Visit Provider Internal Medicine
DX: R19.7 Diarrhea, unspecified (principal); A04.72 Enterocolitis due to Clostridium difficile, not specified as recurrent
CPT/HCPCS: 82272; 87205; 87506; G0328

== ENCOUNTER → 2022-08-18 10:45 | Outpatient (CLI) | payer MEDICARE, OTHER, SELFPAY | PROVIDERS: PCP Internal Medicine; Visit Provider Internal Medicine | DX: K52.9 Noninfective gastroenteritis and colitis, unspecified (principal) | CPT/HCPCS: 87493 ==

== ENCOUNTER → 2022-09-27 12:32 | Outpatient (CLI) | payer MEDICARE, OTHER, SELFPAY ==
[2022-09-27 16:16] LABS: Basophils # 0.1 K/mm3 (0-0.2); Basophils % 1.1 % (0.1-2.0); Eosinophils # 0.2 K/mm3 (0.0-0.4); Eosinophils % 3.4 % (0.1-12.0); Hematocrit 44.7 % (37.0-47.0); Hemoglobin 14.5 g/dL (12.2-16.2); Lymphocytes # 2.2 K/mm3 (0.7-4.5); Lymphocytes % 33.3 % (10-50); Mean Corpuscular HGB Conc 32.4 g/dL (31.8-35.4); Mean Corpuscular Hemoglobin 29.3 pg (27.0-31.2); Mean Corpuscular Volume 90.6 fl (81-99); Mean Platelet Volume 9.3 fl (7.4-10.4); Monocytes # 0.7 K/mm3 (0.1-1.0); Monocytes % 9.7 % (1.7-9.3); Neutrophils # 3.5 K/mm3 (1.8-7.8); Neutrophils % 52.4 % (37.0-80.0); Platelet Count 276 K/mm3 (142-424); Red Blood Count 4.94 M/mm3 (4.20-5.40); Red Cell Distribution Width 14.1 % (11.5-17.5); White Blood Count 6.7 K/mm3 (4.8-10.8)
[2022-09-27 17:36] LABS: Alanine Aminotransferase 21 U/L (12-78); Albumin Level 4.2 g/dl (3.5-5.0); Albumin/Globulin Ratio 1.4 (1.1-1.8); Alkaline Phosphatase 52 U/L (38-126); Anion Gap 13.2 mEq/L (5-15); Aspartate Amino Transferase 38 U/L (14-36); Blood Urea Nitrogen 18 mg/dl (7-17); Calcium 8.7 mg/dl (8.4-10.2); Carbon Dioxide 26 mmol/L (22.0-30.0); Chloride 102 mmol/L (98-107); Cholesterol 164 mg/dl (140-200); Estimated Glomerular Filt Rate 99 ml/min (>60); GFR (African American) 120 ML/MIN (>60); Globulin 3.1 g/dL (1.3-3.2); Glucose 68 mg/dl (74-100); HDL Cholesterol 41 mg/dl (40-60); Potassium 4.2 mmoL/L (3.5-5.1); Sodium 137 mmol/L (136-145); Total Protein,Serum 7.3 g/dl (6.3-8.2); Triglycerides 218 mg/dl (30-150); VLDL Cholesterol 44 mg/dL (0-40)
[2022-09-27 17:46] LABS: Direct LDL Cholesterol 90.19 mg/dL (100-129)
== END ==
PROVIDERS: PCP Internal Medicine; Visit Provider Internal Medicine
DX: I25.10 Atherosclerotic heart disease of native coronary artery without angina pectoris (principal); I49.5 Sick sinus syndrome; I25.2 Old myocardial infarction; I10 Essential (primary) hypertension; R73.01 Impaired fasting glucose; E03.9 Hypothyroidism, unspecified; E78.5 Hyperlipidemia, unspecified
CPT/HCPCS: 80053; 80061; 85025

== ENCOUNTER → 2023-03-30 14:46 | Outpatient (CLI) | payer MEDICARE, OTHER, SELFPAY ==
[2023-03-30 16:07] LABS: Alanine Aminotransferase 24 U/L (12-78); Albumin Level 4.3 g/dl (3.5-5.0); Albumin/Globulin Ratio 1.3 (1.1-1.8); Alkaline Phosphatase 75 U/L (38-126); Anion Gap 12.4 mEq/L (5-15); Aspartate Amino Transferase 32 U/L (14-36); Bilirubin,Total 0.8 mg/dl (0.2-1.3); Blood Urea Nitrogen 17 mg/dl (7-17); Calcium 9.3 mg/dl (8.4-10.2); Carbon Dioxide 31 mmol/L (22.0-30.0); Chloride 103 mmol/L (98-107); Chol/HDL Ratio 3.7 (1-3.5); Cholesterol 168 mg/dl (140-200); Estimated Glomerular Filt Rate 83 ml/min (>60); GFR (African American) 100 ML/MIN (>60); Globulin 3.2 g/dL (1.3-3.2); Glucose 98 mg/dl (74-100); HDL Cholesterol 45 mg/dl (40-60); Magnesium 1.7 mg/dl (1.6-2.3); Potassium 4.4 mmoL/L (3.5-5.1); Sodium 142 mmol/L (136-145); Total Protein,Serum 7.5 g/dl (6.3-8.2); Triglycerides 190 mg/dl (30-150); VLDL Cholesterol 38 mg/dL (0-40)
[2023-03-30 16:17] LABS: Direct LDL Cholesterol 85.23 mg/dL (100-129)
[2023-03-30 16:37] LABS: Thyroid Stimulating Hormone 3.46 uIU/mL (0.465-4.68)
== END ==
PROVIDERS: PCP Internal Medicine; Visit Provider Internal Medicine
DX: I25.10 Atherosclerotic heart disease of native coronary artery without angina pectoris (principal); I25.2 Old myocardial infarction; I10 Essential (primary) hypertension; E03.9 Hypothyroidism, unspecified; E78.5 Hyperlipidemia, unspecified; R73.01 Impaired fasting glucose
CPT/HCPCS: 80053; 80061; 83735; 84443

== ENCOUNTER 2023-09-28 14:39 | Outpatient (CLI) | payer MEDICARE, OTHER, SELFPAY ==
[2023-09-28 15:34] LABS: Basophils # 0.1 K/mm3 (0-0.2); Basophils % 1.1 % (0.1-2.0); Eosinophils # 0.2 K/mm3 (0.0-0.4); Eosinophils % 3.2 % (0.1-12.0); Hemoglobin 15.1 g/dL (12.2-16.2); Lymphocytes # 2.2 K/mm3 (0.7-4.5); Lymphocytes % 30.4 % (10-50); Mean Corpuscular HGB Conc 33.6 g/dL (31.8-35.4); Mean Corpuscular Volume 92.5 fl (81-99); Mean Platelet Volume 9.1 fl (7.4-10.4); Monocytes # 0.6 K/mm3 (0.1-1.0); Monocytes % 9.1 % (1.7-9.3); Neutrophils % 56.3 % (37.0-80.0); Platelet Count 222 K/mm3 (142-424); Red Blood Count 4.86 M/mm3 (4.20-5.40); Red Cell Distribution Width 13.6 % (11.5-17.5); White Blood Count 7.1 K/mm3 (4.8-10.8)
[2023-09-28 16:45] LABS: Alanine Aminotransferase 28 U/L (12-78); Albumin Level 4.2 g/dl (3.5-5.0); Albumin/Globulin Ratio 1.5 (1.1-1.8); Alkaline Phosphatase 69 U/L (38-126); Aspartate Amino Transferase 34 U/L (14-36); Blood Urea Nitrogen 15 mg/dl (7-17); Calcium 9.4 mg/dl (8.4-10.2); Carbon Dioxide 31 mmol/L (22.0-30.0); Chloride 102 mmol/L (98-107); Chol/HDL Ratio 3.6 (1-3.5); Cholesterol 143 mg/dl (140-200); Estimated Glomerular Filt Rate 82 ml/min (>60); GFR (African American) 100 ML/MIN (>60); Globulin 2.8 g/dL (1.3-3.2); Glucose 94 mg/dl (74-100); HDL Cholesterol 40 mg/dl (40-60); Sodium 141 mmol/L (136-145); Triglycerides 157 mg/dl (30-150); VLDL Cholesterol 31 mg/dL (0-40)
[2023-09-28 16:56] LABS: Direct LDL Cholesterol 77.32 mg/dL (100-129)
[2023-09-28 17:17] LABS: Thyroid Stimulating Hormone 1.74 uIU/mL (0.465-4.68)
== END 2023-09-28 23:59 ==
LOC: LAB.DROPOF 14:41
PROVIDERS: PCP Internal Medicine; Visit Provider Internal Medicine
DX: I10 Essential (primary) hypertension (principal); I25.10 Atherosclerotic heart disease of native coronary artery without angina pectoris; I25.2 Old myocardial infarction; I49.5 Sick sinus syndrome; I48.91 Unspecified atrial fibrillation; E78.5 Hyperlipidemia, unspecified; E03.9 Hypothyroidism, unspecified; Z95.0 Presence of cardiac pacemaker
CPT/HCPCS: 80053; 80061; 83735; 84443; 85025

== ENCOUNTER 2024-01-14 20:15 | Emergency (ER) | payer MEDICARE, OTHER, SELFPAY ==
--- NOTE | 2024-01-14 20:26 | ECG_ITS ---
APPROVED REPORT Exam: Resting ECG HR:69 bpm ECG Measurements Heart Rate 69 AXES AR 251 P 204 QRSd 113 QRS 111 QT 432 T -17 QTc 452 Conclusion ELECTRONIC ATRIAL PACEMAKER PATTERN CONSISTENT WITH PULMONARY DISEASE INCOMPLETE RIGHT BUNDLE BRANCH BLOCK [90+ ms QRS DURATION, TERMINAL R IN V1/V2, 40+ ms S IN I/aVL/V4/V5/V6] POSSIBLE RIGHT VENTRICULAR HYPERTROPHY [SOME/ALL OF: PROMINENT R IN V1, LATE TRANSITION, RAD, ALEXANDRE, SSS] NONSPECIFIC T-WAVE ABNORMALITY ABNORMAL ECG UNCONFIRMED REPORT Electronically signed by : BYRON DEL ROSARIO, 01/15/2024 03:29:04
[2024-01-14 20:28] VITALS: BP 159/86; PULSE 73; RESP 19; TEMP 36.2; O2SAT 96; BMI 32.5
[2024-01-14 20:30] VITALS: BP 161/90; PULSE 75; O2SAT 95
--- NOTE | 2024-01-14 20:30 | PC.NURSE ---
stroke alert called
--- NOTE | 2024-01-14 20:35 | CT_ITS ---
PROCEDURE INFORMATION: Exam: CT Head Without Contrast Exam date and time: 01/14/2024 8:40 PM Age: 73 years old Clinical indication: Stroke-like symptoms; Other: Acute vertigo TECHNIQUE: Imaging protocol: Computed tomography of the head without contrast. Radiation optimization: All CT scans at this facility use at least one of these dose optimization techniques: automated exposure control; mA and/or kV adjustment per patient size (includes targeted exams where dose is matched to clinical indication); or iterative reconstruction. Other technique: STROKE PROTOCOL was implemented. COMPARISON: CT ANGIO HEAD 01/14/2021 1:28 PM FINDINGS: Brain: Unremarkable. No hemorrhage or acute infarction. Unremarkable white matter. No midline shift or mass effect. Cerebral ventricles: No hydrocephalus. Paranasal sinuses: Complete opacification of the left maxillary sinus and partial opacification of left anterior ethmoid air cells. Remaining sinuses are clear. Mastoid air cells: Mastoid air cells are clear. Bones: Unremarkable. No acute fracture. Soft tissues: Unremarkable. IMPRESSION: 1. Chronic left sphenoid sinusitis. 2. No acute intracranial abnormality. ASSESSMENT: ASPECTS ([place] Stroke Program Early CT Score) is 10.
--- NOTE | 2024-01-14 20:35 | CT_ITS ---
PROCEDURE INFORMATION: Exam: CTA Head With Contrast, Arteriography Exam date and time: 01/14/2024 8:43 PM Age: 73 years old Clinical indication: Stroke-like symptoms; Other: Acute vertigo TECHNIQUE: Imaging protocol: Computed tomographic angiography of the head with contrast. Exam focused on the arteries. 3D rendering (Not supervised by radiologist): MIP and/or 3D reconstructed images were created by the technologist. Radiation optimization: All CT scans at this facility use at least one of these dose optimization techniques: automated exposure control; mA and/or kV adjustment per patient size (includes targeted exams where dose is matched to clinical indication); or iterative reconstruction. Contrast material: ISOUVE 370; Contrast volume: 100 ml; Contrast route: INTRAVENOUS (IV); COMPARISON: CT HEAD/BRAIN WO CON 01/14/2024 8:40 PM FINDINGS: ANTERIOR CIRCULATION: Right internal carotid artery: Intracranial segment is patent with no significant stenosis. No aneurysm. Right middle cerebral artery: No occlusion or significant stenosis. No aneurysm. Right anterior cerebral artery: No occlusion or significant stenosis. No aneurysm. Left internal carotid artery: Intracranial segment is patent with no significant stenosis. No aneurysm. Left middle cerebral artery: No occlusion or significant stenosis. No aneurysm. Left anterior cerebral artery: No occlusion or significant stenosis. No aneurysm. POSTERIOR CIRCULATION: Right vertebral artery: No occlusion or significant stenosis. No aneurysm. Left vertebral artery: No occlusion or significant stenosis. No aneurysm. Basilar artery: No occlusion or significant stenosis. No aneurysm. Right posterior cerebral artery: No occlusion or significant stenosis. No aneurysm. Left posterior cerebral artery: No occlusion or significant stenosis. No aneurysm. Veins: Venous sinuses and cerebral veins are patent. No intraluminal thrombus. Brain: No hemorrhage, mass effect, or midline shift. Cerebral ventricles: No ventriculomegaly. Bones/joints: Unremarkable. No acute fracture. Soft tissues: Unremarkable. IMPRESSION: No large vessel stenosis or occlusion.
--- NOTE | 2024-01-14 20:35 | CT_ITS ---
PROCEDURE INFORMATION: Exam: CTA Neck With Contrast Exam date and time: 01/14/2024 8:43 PM Age: 73 years old Clinical indication: Stroke-like symptoms; Other: Acute vertigo TECHNIQUE: Imaging protocol: Computed tomographic angiography of the neck with contrast. Exam focused on the cervical segments of the vasculature. 3D rendering (Not supervised by radiologist): MIP and/or 3D reconstructed images were created by the technologist. Radiation optimization: All CT scans at this facility use at least one of these dose optimization techniques: automated exposure control; mA and/or kV adjustment per patient size (includes targeted exams where dose is matched to clinical indication); or iterative reconstruction. Contrast material: ISOUVE 370; Contrast volume: 100 ml; Contrast route: INTRAVENOUS (IV); COMPARISON: CT ANGIO NECK 01/14/2021 1:28 PM FINDINGS: Right common carotid artery: No stenosis. No dissection or occlusion. Right internal carotid artery: No stenosis of the extracranial segment. No dissection or occlusion. Right external carotid artery: No occlusion or stenosis of the origin. Left common carotid artery: No stenosis. No dissection or occlusion. Left internal carotid artery: Mild atherosclerotic plaque in the proximal left ICA without significant stenosis. No significant distal left ICA plaque or stenosis. Left external carotid artery: No occlusion or stenosis of the origin. Right vertebral artery: No stenosis. No dissection or occlusion. Left vertebral artery: No stenosis. No dissection or occlusion. Right subclavian artery: Aberrant retroesophageal right subclavian artery. Soft tissues: Unremarkable. Bones/joints: Advanced degenerative spondylosis in the cervical spine. IMPRESSION: No significant stenosis or large vessel occlusion. REFERENCES: NASCET CRITERIA. The degree of stenosis in the cervical segment of the internal carotid artery is based on NASCET criteria. Normal is no stenosis. Mild is less than 50% stenosis. Moderate is 50-69% stenosis. Severe is 70% to 99% stenosis. Total occlusion is no detectable patent lumen.
--- NOTE | 2024-01-14 20:36 | XR_ITS ---
PROCEDURE INFORMATION: Exam: XR Chest Exam date and time: 01/14/2024 8:58 PM Age: 73 years old Clinical indication: Other: Acute dizziness TECHNIQUE: Imaging protocol: Radiologic exam of the chest. Views: 1 view. COMPARISON: CR XR CHEST 2V 07/20/2019 11:44 PM FINDINGS: Tubes, catheters and devices: Pacemaker is in expected position. Lungs: Hypoventilatory changes in the lungs. Pleural spaces: No pleural effusion. No pneumothorax. Heart/Mediastinum: Mild cardiomegaly. Bones/joints: Unremarkable. IMPRESSION: 1. Cardiomegaly. 2. No acute findings.
--- NOTE | 2024-01-14 20:40 | HMH.EDGENADL ---
Discharge Plan Disposition Patient Disposition: Home, Self-Care Chief Complaint: Neuro Symptoms/Deficit Prescriptions Prescriptions: No Action fexofenadine 180 MG tablet 180 mg PO DAILY aspirin 81 MG tablet,delayed release (DR/EC) 81 mg PO DAILY sotalol 120 MG tablet 160 mg PO BID atenolol 50 MG tablet 50 mg PO BID rosuvastatin 20 MG tablet 20 mg PO HS apixaban 5 MG tablet 5 mg PO BID levothyroxine 88 MCG tablet 88 mcg PO DAILY losartan-hydrochlorothiazide 1 EACH tablet 1 each PO DAILY Referrals Follow up/Referrals: Amadeo Foster MD [Primary Care Provider] - See instructions Activity Restrictions/Add. Instructions Additional Instructions/Restrictions: At this time it was felt you are safe to be discharged home. If new or worsening symptoms please do not hesitate to return the emergency department. If symptoms persist please follow-up with your family doctor as you are able. Clinical Impressions Clinical Impression: Disequilibrium Discharge ED Provider: David Mayer General Adult HPI General Chief complaint: Neuro Symptoms/Deficit Stated complaint: dizzy, nauseous Time Seen by Provider: 01/14/24 20:21 Mode of Arrival: Family Vehicle Source of Information: Patient Limitations: No Limitations Description of Symptoms (Recalled from ER Triage Doc. by RN): 73 yo female presents with cc of acute onset of vertigo. Patient states was riding in the car when she became dizzy and felt like the car was spinning . This happened once before approx 3 years ago. denies angina, denies dyspnea, denies abd pain, denies back pain. No recent headaches. No recent illness that she can recall. History of Present Illness HPI narrative: Patient is a 73-year-old female with past medical history of vertigo and lightheadedness who presents emergency department for evaluation of lightheadedness. Onset was acute, 1 hour prior to arrival, intractable dizziness. The room does not spin a particular direction. There is no vomiting, no trauma, no chest pain, no abdominal pain, no focal weakness or speech changes. No other acute complaints at this time. Related Data Home Medications Medication Instructions Recorded Confirmed aspirin 81 mg tablet,delayed 81 mg PO DAILY Blood thinner 07/02/18 07/24/21 release atenolol 50 mg tablet 50 mg PO BID Hypertension 07/02/18 07/24/21 rosuvastatin 20 mg tablet 20 mg PO HS Supplement 07/02/18 07/24/21 sotalol 120 mg tablet 160 mg PO BID High blood pressure 07/02/18 07/24/21 apixaban 5 mg tablet 5 mg PO BID Blood thinner 07/21/19 07/24/21 levothyroxine 88 mcg tablet 88 mcg PO DAILY thyroid 01/14/21 07/24/21 losartan 50 mg-hydrochlorothiazide 1 each PO DAILY heart 01/14/21 07/24/21 12.5 mg tablet fexofenadine 180 mg tablet 180 mg PO DAILY ALLERGIES 07/24/21 07/24/21 Allergies Allergy/AdvReac Type Severity Reaction Status Date / Time No Known Drug Allergies Allergy Unknown Verified 07/24/21 08:29 [facility] Disclaimer: The information contained in this section may have been updated after the patient was seen, as this information can be updated by other users. Social History Smoking Status: Unknown if ever smoked alcohol intake: never substance use type: denies use current occupational status: other Travel in the last 8 weeks: None household members: significant other housing: house caffeine: Yes ROS Obtained: Yes Systems reviewed as appropriate & no additional complaints except as documented Physical Exam General General appearance: alert and in no apparent distress Head Head exam: atraumatic and normocephalic Eye Eye exam: Present PERRL and EOMI ENT ENT exam: Present mucous membranes moist Neck Neck exam: Present normal inspection Chest Chest inspection: Present normal inspection and symmetric chest wall rise Respiratory Respiratory exam: Present normal lung sounds bilaterally; Absent respiratory distress Cardiovascular Cardiovascular exam: Present regular rate and normal rhythm Abdominal Exam Abdominal exam: Present soft; Absent tenderness Extremities Exam Extremities exam: Present normal inspection Neurological Exam Neurological exam: Present alert, oriented X3 and CN II-XII intact; Absent motor sensory deficit Psychiatric Psychiatric exam: Present normal affect Skin Skin exam: Present warm and dry Medical Decision Making Jasson Inquiry Pt receiving controlled substance: No Vital Signs: 01/14/24 20:28 01/14/24 20:30 01/14/24 21:31 Temperature 97.2 F L Temperature Source Oral Pulse Rate 75 75 Pulse Rate [Right Brachial] 73 Respiratory Rate 19 Blood Pressure 161/90 H 155/79 H Blood Pressure [Right Arm] 159/86 H Blood Pressure Mean 116 126 Blood Pressure Mean [Right Arm] 110 Blood Pressure Source [Right Arm] Automatic Cuff Blood Pressure Position [Right Arm] Sitting 02 Sat by Pulse Oximetry 96 95 97 Oxygen Delivery Method Room Air Room Air Room Air Lab Data Lab Results 01/14/24 20:30: WBC 9.2, RBC 4.83, Hgb 14.7, Hct 44.9, MCV 92.9, MCH 30.4, MCHC 32.8, RDW 14.4, Plt Count 279, MPV 8.0, Neut % (Auto) 56.0, Lymph % (Auto) 32.3, [place] % (Auto) 7.4, Eos % (Auto) 2.9, Baso % (Auto) 1.2, Neut # (Auto) 5.1, Lymph # (Auto) 3.0, [place] # (Auto) 0.7, Eos # (Auto) 0.3, Baso # (Auto) 0.1, Sodium 136, Potassium 3.8, Chloride 100, Carbon Dioxide 28, Anion Gap 11.8, BUN 17, Creatinine 0.80, Estimated Creat Clear 64, Estimated GFR 71, Est GFR ( Amer) 86, Glucose 162 H, Calcium 9.4, Total Bilirubin 1.0, AST 38 H, ALT 33, Alkaline Phosphatase 81, Troponin I < 0.01, Total Protein 7.8, Albumin 4.3, Globulin 3.5 H, Albumin/Globulin Ratio 1.2, TSH 5.39 H, Thyroxine (T4) 10.9 01/14/24 20:30 01/14/24 20:30 Orders (Tests/Meds): ED MEDICATIONS Generic Name Dose Route Start Last Admin Trade Name Freq PRN Reason Stop Dose Admin Sodium Chloride 10 ml 01/14/24 20:55 01/14/24 20:56 Sodium Chloride 0.9% 10ml Syr (Rad Only) IV 02/13/24 20:54 10 ml NEEDED PRN Administration Maintain IV Site Discontinued Medications Generic Name Dose Route Start Last Admin Trade Name Freq PRN Reason Stop Dose Admin Iopamidol 100 ml 01/14/24 20:55 01/14/24 20:56 Iopamidol-370 (76%);100ml Bottle IV 01/14/24 20:56 100 ml ONCE ONE Administration Sodium Chloride 50 ml 01/14/24 20:55 01/14/24 20:56 0.9 % Sodium Chloride 50 Ml Vial IV 01/14/24 20:56 50 ml ONCE ONE Administration ORDERS Category Date Time Status CT angio head Stat Cat Scan 01/14/24 20:[address] angio neck Stat Cat Scan 01/14/24 20:[address] head/brain wo con Stat Cat Scan 01/14/24 20:35 Completed Chest XR -- portable [XR chest portable] Stat Exams 01/14/24 20:36 Completed Complete Blood Count Auto Diff Stat Lab 01/14/24 20:30 Completed Comprehensive Metabolic Panel Stat Lab 01/14/24 20:30 Completed T4 (Thyroxine) Stat Lab 01/14/24 20:30 Completed TSH [Thyroid Stimulating Hormone] Stat Lab 01/14/24 20:30 Completed Troponin I Q3H Lab 01/14/24 23:45 Ordered Troponin I Q3H Lab 01/15/24 02:45 Ordered Troponin I Stat Lab 01/14/24 20:30 Completed EKG Request [ECG Request] Stat Y 01/14/24 20:40 Stop Req ECG Data Tracing #1: Independently interpreted by me, rate 69, rhythm is regular, a paced, no ST elevation in anatomical contiguous leads, QTc 452. Medical Decision Narrative: In summary patient is a 73-year-old female past medical history described above who presents emergency department for evaluation of dizziness. Last known normal 7 PM, symptoms are resolving upon arrival. Patient will undergo stroke protocol CT imaging, hematologic labs to be obtained, fingerstick obtained at bedside and is nonactionable. NIH is 0. Workup reviewed by me, hematologic labs are nonactionable. CTAs of the head and neck unremarkable, noncontrasted CT scan of the head shows no acute intracranial abnormality, chronic sinusitis. Upon repeat evaluation patient was amatory bedside, large resolution of symptoms. Patient has had disequilibrium over the last year, has no acute large vessel infarct and pacemaker was reportedly MRI incompatible. She is already on antiplatelet, anticoagulant, blood pressure management and statin therefore secondary stroke prophylaxis is felt to be maximized at this point. Patient is appropriate for discharge at this time was given multiple return precautions and verbalized understanding. Critical Care Critical Care Time Critical Care Time: No
[2024-01-14 20:45] LABS: Basophils # 0.1 K/mm3 (0-0.2); Basophils % 1.2 % (0.1-2.0); Eosinophils # 0.3 K/mm3 (0.0-0.4); Eosinophils % 2.9 % (0.1-12.0); Hematocrit 44.9 % (37.0-47.0); Hemoglobin 14.7 g/dL (12.2-16.2); Lymphocytes % 32.3 % (10-50); Mean Corpuscular HGB Conc 32.8 g/dL (31.8-35.4); Mean Corpuscular Hemoglobin 30.4 pg (27.0-31.2); Mean Corpuscular Volume 92.9 fl (81-99); Monocytes # 0.7 K/mm3 (0.1-1.0); Monocytes % 7.4 % (1.7-9.3); Neutrophils # 5.1 K/mm3 (1.8-7.8); Platelet Count 279 K/mm3 (142-424); Red Blood Count 4.83 M/mm3 (4.20-5.40); Red Cell Distribution Width 14.4 % (11.5-17.5); White Blood Count 9.2 K/mm3 (4.8-10.8)
[2024-01-14 20:50] LABS: Chloride 100 mmol/L (98-107); Potassium 3.8 mmoL/L (3.5-5.1); Sodium 136 mmol/L (136-145)
[2024-01-14 20:52] LABS: Blood Urea Nitrogen 17 mg/dl (7-17); Creatinine Clearance Estimated 64 mL/min (50-200); Estimated Glomerular Filt Rate 71 ml/min (>60); GFR (African American) 86 ML/MIN (>60)
[2024-01-14 20:53] LABS: Alanine Aminotransferase 33 U/L (12-78); Albumin Level 4.3 g/dl (3.5-5.0); Albumin/Globulin Ratio 1.2 (1.1-1.8); Alkaline Phosphatase 81 U/L (38-126); Anion Gap 11.8 mEq/L (5-15); Aspartate Amino Transferase 38 U/L (14-36); Calcium 9.4 mg/dl (8.4-10.2); Carbon Dioxide 28 mmol/L (22.0-30.0); Globulin 3.5 g/dL (1.3-3.2); Glucose 162 mg/dl (74-100); Total Protein,Serum 7.8 g/dl (6.3-8.2)
[2024-01-14] MEDS: SODIUM CHLORIDE 0.9% 10ML SYR (RAD ONLY) 10 ML IV (20:56)
[2024-01-14] MEDS: IOPAMIDOL-370 (76%);100ML BOTTLE 100 ML IV (20:56)
[2024-01-14] MEDS: 0.9 % SODIUM CHLORIDE 50 ML VIAL IV (20:56)
[2024-01-14 21:07] LABS: Troponin I < 0.01 ng/ml (0.00-0.034)
[2024-01-14 21:10] LABS: T4 (Thyroxine) 10.9 ug/dl (5.53-11.0)
--- NOTE | 2024-01-14 21:22 | PC.NURSE ---
yen called and spoke with md. perdue read
[2024-01-14 21:24] LABS: Thyroid Stimulating Hormone 5.39 uIU/mL (0.465-4.68)
[2024-01-14 21:31] VITALS: BP 155/79; PULSE 75; O2SAT 97
--- NOTE | 2024-01-14 21:56 | PC.NURSE ---
rounded on patient, soft drink given, no other needs
[2024-01-14 22:01] VITALS: BP 163/91; PULSE 70; O2SAT 98
--- NOTE | 2024-01-14 22:47 | PC.NURSE ---
pt ambulated without difficulty in hallway
[2024-01-14 23:15] VITALS: BP 150/80; PULSE 80; RESP 20; TEMP 36.7; O2SAT 98
== END 2024-01-14 23:20 | disposition home or self-care (01) ==
PROVIDERS: Emergency Provider Emergency Medicine; PCP Internal Medicine
DX: R42 Dizziness and giddiness (principal); R11.0 Nausea; Z95.0 Presence of cardiac pacemaker
CPT/HCPCS: 70450; 70496; 70498; 71045; 80053; 84436; 84443; 84484; 85025; 93005; 99285; Q9967

== ENCOUNTER 2024-03-26 15:29 | Outpatient (CLI) | payer MEDICARE, OTHER, SELFPAY ==
[2024-03-26 18:13] LABS: Alanine Aminotransferase 33 U/L (12-78); Albumin Level 3.8 g/dl (3.5-5.0); Albumin/Globulin Ratio 1.3 (1.1-1.8); Alkaline Phosphatase 71 U/L (38-126); Anion Gap 11.3 mEq/L (5-15); Aspartate Amino Transferase 33 U/L (14-36); Bilirubin,Total 1.1 mg/dl (0.2-1.3); Blood Urea Nitrogen 17 mg/dl (7-17); Carbon Dioxide 28 mmol/L (22.0-30.0); Chloride 105 mmol/L (98-107); Chol/HDL Ratio 2.6 (1-3.5); Cholesterol 131 mg/dl (140-200); Estimated Glomerular Filt Rate 99 ml/min (>60); GFR (African American) 119 ML/MIN (>60); Glucose 87 mg/dl (74-100); HDL Cholesterol 51 mg/dl (40-60); Potassium 4.3 mmoL/L (3.5-5.1); Sodium 140 mmol/L (136-145); Total Protein,Serum 6.8 g/dl (6.3-8.2); Triglycerides 110 mg/dl (30-150); VLDL Cholesterol 22 mg/dL (0-40)
[2024-03-26 18:33] LABS: Direct LDL Cholesterol 53.78 mg/dL (100-129)
[2024-03-26 18:43] LABS: Thyroid Stimulating Hormone 3.28 uIU/mL (0.465-4.68)
== END 2024-03-26 23:59 | disposition home or self-care (01) ==
LOC: LAB.DROPOF 03-27 15:29
PROVIDERS: PCP Internal Medicine; Visit Provider Internal Medicine
DX: E78.5 Hyperlipidemia, unspecified (principal); E03.9 Hypothyroidism, unspecified; I10 Essential (primary) hypertension; I25.10 Atherosclerotic heart disease of native coronary artery without angina pectoris
CPT/HCPCS: 80053; 80061; 84443

== ENCOUNTER 2024-07-17 13:23 | Outpatient (CLI) | payer MEDICARE, OTHER, SELFPAY ==
--- NOTE | 2024-07-17 13:27 | XR_ITS ---
FINAL REPORT TECHNIQUE: Chest PA & Lateral CLINICAL HISTORY: cough, congestion, wheezing since yesterday COMPARISON: None FINDINGS: 2 views of the chest were performed. Mild cardiomegaly is present. A pacemaker is noted. The mediastinum is within normal limits. There is no acute cardiopulmonary process. Chronic changes are present in the lung bases. There are no pleural effusions. There is no pneumothorax. The bony thorax appears intact. IMPRESSION: Cardiomegaly, with no acute cardiopulmonary process. Reviewed, Interpreted and Dictated by Adryan Yepez MD Transcribed by Abby Mondragon Authenticated and [facility]
== END 2024-07-17 23:59 | disposition home or self-care (01) ==
LOC: RAD 13:25
PROVIDERS: PCP Internal Medicine; Visit Provider Internal Medicine
DX: R05.9 Cough, unspecified (principal); R06.02 Shortness of breath
CPT/HCPCS: 71046

== ENCOUNTER 2024-08-11 17:39 | Emergency (ER) | payer MEDICARE, OTHER, SELFPAY ==
[2024-08-11 17:40] VITALS: BP 181/96; PULSE 80; RESP 20; TEMP 37.2; O2SAT 97; BMI 31.1
--- NOTE | 2024-08-11 17:48 | ECG_ITS ---
APPROVED REPORT Exam: Resting ECG HR:87 bpm ECG Measurements Heart Rate 87 AXES DE 200 P 104 QRSd 110 QRS -61 QT 365 T 71 QTc 410 Conclusion ELECTRONIC ATRIAL PACEMAKER PATTERN CONSISTENT WITH PULMONARY DISEASE POSSIBLE RIGHT VENTRICULAR CONDUCTION DELAY [RSR (QR) IN V1/V2] ABNORMAL ECG UNCONFIRMED REPORT Electronically signed by : BYRON DEL ROSARIO, 08/13/2024 23:51:32
[2024-08-11 17:49] VITALS: BP 181/96; PULSE 80; RESP 17; O2SAT 95
--- NOTE | 2024-08-11 17:56 | ED_ITS ---
Discharge Plan Disposition Patient Disposition: Home, Self-Care Condition: Good Prescriptions Prescriptions: New furosemide [Lasix] 20 mg tablet 20 mg PO DAILY Qty: 5 0RF No Action atenolol 50 mg tablet 50 mg PO BID losartan 100 mg tablet 50 mg PO DAILY amoxicillin 500 mg tablet 1,000 mg PO BID Qty: 40 0RF methylprednisolone 4 mg tablets,dose pack See Rx Instructions PO PER PKG DIR Qty: 21 0RF Rx Instructions: PO PER PKG DIR rosuvastatin 20 mg tablet 20 mg PO HS Qty: 90 1RF levocetirizine [Xyzal] 5 mg tablet 5 mg PO DAILY Qty: 90 1RF ezetimibe [Zetia] 10 mg tablet 10 mg PO DAILY Qty: 90 1RF magnesium oxide 400 mg (241.3 mg magnesium) tablet 400 mg PO DAILY Patient Comments: TAKE 1 TABLET BY MOUTH ONCE DAILY nitroglycerin 0.4 mg tablet, sublingual 0.4 mg sublingual Q5M PRN Rx Instructions: do not exceed 3 doses per episode dofetilide 500 mcg capsule 500 mcg PO BID meclizine 25 mg tablet 25 mg PO TID PRN (Reason: dizziness) Qty: 90 0RF levothyroxine 88 mcg tablet 88 mcg PO DAILY Qty: 90 1RF lorazepam 0.5 mg tablet 0.5 mg PO TID PRN (Reason: anxiety) Qty: 60 3RF aspirin 81 MG tablet,delayed release (DR/EC) 81 mg PO DAILY apixaban 5 MG tablet 5 mg PO BID Referrals Follow up/Referrals: Amadeo Foster MD [Primary Care Provider] - See instructions Activity Restrictions/Add. Instructions Additional Instructions/Restrictions: You are being prescribed a low-dose of Lasix. This is a diuretic to help pull fluid off of your lungs. This will cause you to be more than normal. Take 20 mg of Lasix daily. Follow-up with your primary care physician on Tuesday of next week for close follow-up. You were found to have COVID-19 infection here today. This will improve over time, you can take Tylenol to help with symptoms. If you develop any new or worsening symptoms, or if you become concerned for your health for any reason, return to the emergency department for evaluation. Clinical Impressions Clinical Impression: SARS-CoV-2 positive, Volume overload Print Language Print Language: Maori Discharge ED Provider: Brayden Syed HPI General Chief Complaint: Shortness of Breath/Dyspnea Stated Complaint: chest congestion tightness Time Seen by Provider: 08/11/24 17:55 Mode of Arrival: Ambulatory Source of Information: Patient Limitations: No Limitations History of Present Illness HPI narrative: Phyllis Choi is a 74y female with a past medical history of [place] status post coronary stent on aspirin and Eliquis, pacemaker, A-fib, bronchitis who presents to the emergency department for complaints of shortness of breath and dry cough as well as chest tightness. Patient states that 3 weeks ago, she had a cough and was diagnosed with bronchitis and was treated with antibiotics and steroids. She notes that her symptoms had improved, however starting approximately 3 days ago, she developed a dry cough as well as tightness in her chest only present when she coughs. She denies any leg swelling. She reports she had a temperature of 100.1 prior to leaving the house today. She last took Advil yesterday. She notes that her has recently had sinus congestion but no other sick contacts that she is aware of. She states that this does not feel similar to her previous heart attack. Related Data Home Medications ?Medication ?Instructions ?Recorded ?Confirmed aspirin 81 mg tablet,delayed 81 mg PO DAILY Blood thinner 07/02/18 07/17/24 release apixaban 5 mg tablet 5 mg PO BID Blood thinner 07/21/19 07/17/24 magnesium oxide 400 mg (241.3 mg 400 mg PO DAILY 02/01/24 07/17/24 magnesium) tablet nitroglycerin 0.4 mg sublingual 0.4 mg sublingual Q5M PRN 02/01/24 07/17/24 tablet dofetilide 500 mcg capsule 500 mcg PO BID 02/27/24 07/17/24 atenolol 50 mg tablet 50 mg PO BID Hypertension 06/20/24 07/17/24 losartan 100 mg tablet 50 mg PO DAILY 06/20/24 07/17/24 Previous Rx's ?Medication ?Instructions ?Recorded meclizine 25 mg tablet 25 mg PO TID PRN dizziness #90 tabs 01/30/24 ezetimibe 10 mg tablet (Zetia) 10 mg PO DAILY #90 tabs 03/26/24 levocetirizine 5 mg tablet (Xyzal) 5 mg PO DAILY #90 tabs 03/26/24 rosuvastatin 20 mg tablet 20 mg PO HS Supplement #90 tabs 03/26/24 levothyroxine 88 mcg tablet 88 mcg PO DAILY thyroid #90 tabs 04/03/24 amoxicillin 500 mg tablet 1,000 mg (2 x 500 mg) PO BID #40 07/17/24 tabs methylprednisolone 4 mg tablets in See Rx Instructions PO PER PKG DIR 07/17/24 a dose pack #21 tabs lorazepam 0.5 mg tablet 0.5 mg PO TID PRN anxiety #60 tabs 07/25/24 furosemide 20 mg tablet (Lasix) 20 mg PO DAILY #5 tabs 08/11/24 Allergies Allergy/AdvReac Type Severity Reaction Status Date / Time No Known Drug Allergies Allergy Unknown Verified 07/17/24 13:05 [facility] Disclaimer: The information contained in this section may have been updated after the patient was seen, as this information can be updated by other users. Social History Smoking Status: Never smoker alcohol intake: never substance use type: denies use current occupational status: other Travel in the last 8 weeks: None household members: significant other housing: house caffeine: Yes Have you lived/traveled outside [place] in past 30 days?: No Contact w/someone who lives/traveled outside US past 30 days?: No Exposure to someone with infectious disease in past 14 days?: No Do you have a fever (greater than 100.4 F or 38 C)?: No Have you tested positive for COVID-19: No Exposed to someone with COVID-19 in past 14 days?: No Do you have a sore throat?: No Do you have a cough?: No Do you have any weakness?: Yes Do you have any diarrhea?: No Are you experiencing any unusual bleeding?: No Do you have any muscle aches/pain?: Yes Do you have any abdominal pain?: No Are you experiencing loss of taste or smell?: No Other Medical History Have you received the Flu Vaccine for this season: No Have you received the Pneumonia Vaccine: Yes ROS Obtained: Yes Systems reviewed as appropriate & no additional complaints except as documented Physical Exam General General appearance: alert and in no apparent distress Head Head exam: atraumatic Eye Eye exam: Present normal appearance ENT ENT exam: Present normal external ear exam Neck Neck exam: Present full ROM Chest Chest inspection: Present symmetric chest wall rise Respiratory Respiratory exam: Present normal lung sounds bilaterally and other (Crackles in the right upper lobe); Absent respiratory distress, wheezes or stridor Cardiovascular Cardiovascular exam: Present regular rate and normal rhythm Abdominal Exam Abdominal exam: Present soft; Absent distention, tenderness or guarding Extremities Exam Extremities exam: Present normal inspection; Absent edema Back Exam Back exam: Present normal inspection Neurological Exam Neurological exam: Present alert and oriented X3 Psychiatric Psychiatric exam: Present normal affect Skin Skin exam: Present warm and dry HEART Score HEART Score HEART Score assessment performed?: Yes History (anamnesis): Slightly suspicious ECG: Normal Age: >65 years Risk factors: 3 or more risk factors Troponin: </= normal limit HEART Score: 4 Critical Care Critical Care Time Critical Care Time: No Medical Decision Making Jasson Inquiry Pt receiving controlled substance: No Vital Signs Vital Signs: 08/11/24 17:40 08/11/24 17:49 08/11/24 18:00 Temperature 99.0 F Temperature Source Oral Pulse Rate 80 84 Pulse Rate [Right Radial] 80 Respiratory Rate 20 17 16 Blood Pressure 181/96 H 170/97 H Blood Pressure [Right Arm] 181/96 H Blood Pressure Mean [Right Arm] 124 02 Sat by Pulse Oximetry 97 95 96 Oxygen Delivery Method Room Air Room Air Room Air 08/11/24 18:30 08/11/24 19:00 08/11/24 19:56 Temperature 98.2 F Temperature Source Tympanic Pulse Rate 79 83 80 Pulse Rate [Right Radial] Respiratory Rate 18 10 L 16 Blood Pressure 159/93 H 148/84 H 149/90 H Blood Pressure [Right Arm] Blood Pressure Mean [Right Arm] 02 Sat by Pulse Oximetry 95 94 L Oxygen Delivery Method Room Air Lab Data Labs: Lab Results 08/11/24 17:46: SARS-CoV-2 (PCR) Detected A, Influenza A Untype (PCR) Not detected, Influenza Type B (PCR) Not detected 08/11/24 17:55: WBC 10.1, RBC 5.13, Hgb 14.2, Hct 44.7, MCV 87.1, MCH 27.6, MCHC 31.7 L, RDW 15.2, Plt Count 228, MPV 7.8, Neut % (Auto) 70.8, Lymph % (Auto) 19.0, [place] % (Auto) 6.1, Eos % (Auto) 3.2, Baso % (Auto) 1.0, Neut # (Auto) 7.1, Lymph # (Auto) 1.9, [place] # (Auto) 0.6, Eos # (Auto) 0.3, Baso # (Auto) 0.1, Sodium 139, Potassium 4.5, Chloride 104, Carbon Dioxide 29, Anion Gap 10.5, BUN 17, Creatinine 0.70, Estimated Creat Clear 60, Estimated GFR 82, Est GFR ( Amer) 100, Glucose 132 H, Calcium 9.1, Troponin I < 0.01, C-Reactive Protein 9.1 H, NT-Pro-B Natriuret Pep 1990 H 08/11/24 17:55 08/11/24 17:55 Response Orders (Tests/Meds): ED MEDICATIONS Discontinued Medications Generic Name Dose Route Start Last Admin Trade Name Freq PRN Reason Stop Dose Admin Acetaminophen 1,000 mg 08/11/24 18:03 08/11/24 18:06 Acetaminophen 500mg Tab PO 08/11/24 18:04 1,000 mg ONCE ONE Administration Furosemide 20 mg 08/11/24 19:31 08/11/24 19:40 Furosemide 20mg Tablet PO 08/11/24 19:32 20 mg ONCE ONE Administration ORDERS Category Date Time Status CXR 2 view (NOT portable) [XR chest 2V] Stat Exams 08/11/24 18:03 Completed BMP [Basic Metabolic Panel] Stat Lab 08/11/24 17:55 Completed BNP [NT Pro Brain Natriuretic Pep.] Stat Lab 08/11/24 17:55 Completed CBC w/Auto Diff [Complete Blood Count Auto Diff] Stat Lab 08/11/24 17:55 Completed CRP [C-Reactive Protein] Stat Lab 08/11/24 17:55 Completed Rapid PCR Covid and Flu A/B Stat Lab 08/11/24 17:46 Completed Troponin I Stat Lab 08/11/24 17:55 Completed MDM Narrative Medical Decision Narrative: Phyllis Heller is a 74-year-old female with a history of A-fib, [place] status post stent and is on aspirin and Eliquis, hypertension, pacemaker who presents to the emergency department for complaints of shortness of breath, chest tightness. Patient states that she was diagnosed with bronchitis 3 weeks ago was treated with steroids and ibuprofen and her symptoms improved. Over the past 3 days, she has had a dry cough as well as tightness in her chest only associated when she coughs. She feels slightly short of breath. She denies any leg swelling. She states that this does not feel similar to previous heart attacks. She reports a temperature of 100.1 ?F prior to coming to the emergency department. On arrival, patient is hypertensive with blood pressure 181/96 but notes that she has been taking Mucinex and is on multiple antihypertensives. She is afebrile with temperature of 99 ?F, breathing comfortably on room air, oxygen 95% SpO2. Physical exam, stated above, revealed overall well-appearing female in no acute distress. She has slight rales in the right upper lobe but otherwise no other adventitious lung sounds. No cardiac murmurs. No peripheral edema. Abdomen is soft, nontender nondistended. Differential diagnosis includes, but is not limited to: Pneumonia, bronchitis, ACS, empyema, heart failure, viral respiratory illness, among others. Workup includes: EKG, two-view chest x-ray, troponin, BNP, CBC, BMP, CRP, COVID/flu swab. Patient was treated with 1 g of oral Tylenol EKG interpreted by me personally. Atrially paced rhythm noted. Ventricular rate of 87 bpm. QTc normal at 410, OH interval 200. No ST elevation or depression. Chest x-ray interpreted by me personally prior to official radiology read and demonstrated increased hazy opacities throughout both lung leon. This may be indicative of mild volume overload. No pneumothorax. No pulmonary effusion. Cardiac silhouette does not appear enlarged. No widening of the mediastinum. See radiology report for final details. Patient's lab work demonstrated no leukocytosis, electrolytes within normal limits, initial troponin less than 0.01, BNP elevated at 1990 and CRP mildly elevated at 9.1. Patient was found to be COVID 19 positive. Patient's BNP is elevated and patient has some mild congestion noted on her chest x-ray, however she is not hypoxic and not tachypneic and does not warrant admission at this time. Given her negative troponin, there is low concern for myocarditis at this time. Vital signs are stable. Given this, we will treat her with a dose of Lasix 20 mg orally here in the emergency department and send her with a 5-day course of Lasix to take at home. Patient was instructed to follow-up with her primary care physician on Tuesday for reassessment. She demonstrated understanding and was in agreement this plan. She was given strict return precautions. All questions were answered. She was then discharged from the emergency department in stable condition.
--- NOTE | 2024-08-11 17:59 | PC.NURSE ---
DR GRANADOS AT BEDSIDE
[2024-08-11 18:00] VITALS: BP 170/97; PULSE 84; RESP 16; O2SAT 96
--- NOTE | 2024-08-11 18:03 | XR_ITS ---
PROCEDURE INFORMATION: Exam: XR Chest Exam date and time: 08/11/2024 6:02 PM Age: 74 years old Clinical indication: Pain; Shortness of breath; Other: Chest tightness; Additional info: Shortness of breath, chest tightness TECHNIQUE: Imaging protocol: Radiologic exam of the chest. Views: 2 views. COMPARISON: CR XR CHEST 2V 07/17/2024 1:44 PM FINDINGS: Tubes, catheters and devices: There is a left chest implanted cardiac device. Lungs: Multifocal parenchymal opacity may reflect edema. Pleural spaces: No large effusion or pneumothorax. Heart/Mediastinum: Stable cardiac and mediastinal contours. Vasculature: There are calcifications of the aortic arch. Bones/joints: No evidence of acute osseous abnormalities within the visualized portions of the thoracic spine and ribs. Osseous structures appear appropriate for patient age. IMPRESSION: Multifocal parenchymal opacity may reflect edema.
[2024-08-11] MEDS: ACETAMINOPHEN 500MG TAB 1000 MG PO (18:06)
[2024-08-11 18:11] LABS: Basophils # 0.1 K/mm3 (0-0.2); Eosinophils # 0.3 K/mm3 (0.0-0.4); Eosinophils % 3.2 % (0.1-12.0); Hematocrit 44.7 % (37.0-47.0); Hemoglobin 14.2 g/dL (12.2-16.2); Lymphocytes # 1.9 K/mm3 (0.7-4.5); Mean Corpuscular HGB Conc 31.7 g/dL (31.8-35.4); Mean Corpuscular Hemoglobin 27.6 pg (27.0-31.2); Mean Corpuscular Volume 87.1 fl (81-99); Mean Platelet Volume 7.8 fl (7.4-10.4); Monocytes # 0.6 K/mm3 (0.1-1.0); Monocytes % 6.1 % (1.7-9.3); Neutrophils # 7.1 K/mm3 (1.8-7.8); Neutrophils % 70.8 % (37.0-80.0); Platelet Count 228 K/mm3 (142-424); Red Blood Count 5.13 M/mm3 (4.20-5.40); Red Cell Distribution Width 15.2 % (11.5-17.5); White Blood Count 10.1 K/mm3 (4.8-10.8)
[2024-08-11 18:13] LABS: Influenza A, PCR Not Detected (NotDetected); Influenza B, PCR Not Detected (NotDetected)
[2024-08-11 18:14] LABS: Chloride 104 mmol/L (98-107); Sodium 139 mmol/L (136-145)
[2024-08-11 18:15] LABS: Potassium 4.5 mmoL/L (3.5-5.1)
[2024-08-11 18:17] LABS: Blood Urea Nitrogen 17 mg/dl (7-17); Creatinine Clearance Estimated 60 mL/min (50-200); Estimated Glomerular Filt Rate 82 ml/min (>60); GFR (African American) 100 ML/MIN (>60)
[2024-08-11 18:18] LABS: Anion Gap 10.5 mEq/L (5-15); Calcium 9.1 mg/dl (8.4-10.2); Carbon Dioxide 29 mmol/L (22.0-30.0); Glucose 132 mg/dl (74-100)
[2024-08-11 18:23] LABS: C-Reactive Protein 9.1 mg/L (0-4)
[2024-08-11 18:29] LABS: NT Pro Brain Natriuretic Pep. 1990 pg/mL (0-125)
[2024-08-11 18:30] VITALS: BP 159/93; PULSE 79; RESP 18; O2SAT 95
[2024-08-11 18:39] LABS: Troponin I < 0.01 ng/ml (0.00-0.034)
[2024-08-11 18:49] LABS: Coronavirus 19, PCR Detected (NotDetected)
[2024-08-11 19:00] VITALS: BP 148/84; PULSE 83; RESP 10; O2SAT 94
[2024-08-11] MEDS: FUROSEMIDE 20MG TABLET 20 MG PO (19:40)
[2024-08-11 19:56] VITALS: BP 149/90; PULSE 80; RESP 16; TEMP 36.8; O2SAT 95
== END 2024-08-11 20:09 | disposition home or self-care (01) ==
PROVIDERS: Emergency Provider Student in an Organized Health Care Education/Training Program; PCP Internal Medicine
DX: U07.1 COVID-19 (principal); E87.70 Fluid overload, unspecified; R06.02 Shortness of breath; R07.89 Other chest pain; R05.9 Cough, unspecified; R50.9 Fever, unspecified
CPT/HCPCS: 71046; 80048; 83880; 84484; 85025; 86140; 87636; 93005; 99284

== ENCOUNTER 2024-08-16 12:40 | Outpatient (CLI) | payer MEDICARE, OTHER, SELFPAY ==
--- NOTE | 2024-08-16 12:44 | XR_ITS ---
FINAL REPORT CLINICAL HISTORY: Follow-up on congestive heart failure COMPARISON: 01/14/2024 FINDINGS: No acute pulmonary density is evident. There is no evidence of effusion or other pleural disease. The mediastinum has a normal appearance. There is mild cardiomegaly. A left-sided pacing device is present presumed coursing through left-sided SVC, similar to the prior study. IMPRESSION: No evidence of acute CHF. Reviewed, Interpreted and Dictated by Fab Ordonez MD Transcribed by Candie Kohli Authenticated and [facility]
[2024-08-16 15:09] LABS: Chloride 102 mmol/L (98-107); Potassium 4.5 mmoL/L (3.5-5.1); Sodium 136 mmol/L (136-145)
[2024-08-16 15:12] LABS: Anion Gap 6.5 mEq/L (5-15); Blood Urea Nitrogen 18 mg/dl (7-17); Calcium 9.3 mg/dl (8.4-10.2); Carbon Dioxide 32 mmol/L (22.0-30.0); Estimated Glomerular Filt Rate 71 ml/min (>60); GFR (African American) 85 ML/MIN (>60); Glucose 99 mg/dl (74-100)
== END 2024-08-16 23:59 | disposition home or self-care (01) ==
LOC: LAB 12:41 → RAD 12:43
PROVIDERS: PCP Internal Medicine; Visit Provider Internal Medicine
DX: I50.20 Unspecified systolic (congestive) heart failure (principal); U07.1 COVID-19
CPT/HCPCS: 71046; 80048

== ENCOUNTER 2024-10-08 11:25 | Outpatient (CLI) | payer MEDICARE, OTHER, SELFPAY ==
[2024-10-08 13:39] LABS: Albumin Level 4.4 g/dl (3.5-5.0); Chloride 105 mmol/L (98-107); Potassium 4.5 mmoL/L (3.5-5.1); Sodium 141 mmol/L (136-145)
[2024-10-08 13:42] LABS: Alanine Aminotransferase 30 U/L (12-78); Albumin/Globulin Ratio 1.6 (1.1-1.8); Alkaline Phosphatase 77 U/L (38-126); Anion Gap 11.5 mEq/L (5-15); Aspartate Amino Transferase 36 U/L (14-36); Bilirubin,Total 1.1 mg/dl (0.2-1.3); Blood Urea Nitrogen 15 mg/dl (7-17); Calcium 9.2 mg/dl (8.4-10.2); Carbon Dioxide 29 mmol/L (22.0-30.0); Chol/HDL Ratio 2.7 (1-3.5); Cholesterol 131 mg/dl (140-200); Estimated Glomerular Filt Rate 82 ml/min (>60); GFR (African American) 100 ML/MIN (>60); Globulin 2.7 g/dL (1.3-3.2); Glucose 90 mg/dl (74-100); HDL Cholesterol 48 mg/dl (40-60); Total Protein,Serum 7.1 g/dl (6.3-8.2); Triglycerides 125 mg/dl (30-150); VLDL Cholesterol 25 mg/dL (0-40)
== END 2024-10-08 23:59 | disposition home or self-care (01) ==
LOC: LAB.DROPOF 10-09 10:36
PROVIDERS: PCP Internal Medicine; Visit Provider Internal Medicine
DX: I10 Essential (primary) hypertension (principal); E78.5 Hyperlipidemia, unspecified; I48.0 Paroxysmal atrial fibrillation; E03.9 Hypothyroidism, unspecified
CPT/HCPCS: 80053; 80061; 84443

== ENCOUNTER 2025-01-02 10:51 | Outpatient (CLI) | payer MEDICARE, OTHER, SELFPAY ==
--- OUTSIDE RECORDS SUMMARY | 2025-01-02 10:53 | XMS_ITS ---
Author Organization Unknown TREATMENT PLAN [facility] Start Date Provider Encounter for Check-up [phone] [facility]
--- NOTE | 2025-01-02 11:00 | MM_ITS ---
PROCEDURE INFORMATION: Exam: MG Bilateral Screening 3D Mammography Exam date and time: 01/02/2025 10:57 AM Age: 74 years old Clinical indication: Screening exam TECHNIQUE: Imaging protocol: Bilateral Screening tomosynthesis and 2D mammography including computer-aided detection (CAD) when performed. COMPARISON: No relevant prior studies available. FINDINGS: MAMMOGRAPHY: Breast composition: The breasts are heterogeneously dense, which may obscure small masses. Mass: No suspicious masses. Architectural distortion: None. Calcifications: No suspicious calcifications. Asymmetric density: None. Skin thickening: None. Axillary adenopathy: None. IMPRESSION: No mammographic evidence of malignancy. Annual screening is recommended unless otherwise clinically indicated. ASSESSMENT: BI-RADS Category 1: Negative.
== END 2025-01-02 23:59 | disposition home or self-care (01) ==
LOC: RAD 10:52
PROVIDERS: PCP Internal Medicine; Visit Provider Internal Medicine
DX: Z12.31 Encounter for screening mammogram for malignant neoplasm of breast (principal)
CPT/HCPCS: 77063; 77067

== ENCOUNTER 2025-01-24 12:15 | Outpatient (CLI) | payer MEDICARE, OTHER, SELFPAY ==
[2025-01-24 19:01] LABS: Thyroid Stimulating Hormone 1.37 uIU/mL (0.465-4.68)
== END 2025-01-24 23:59 | disposition home or self-care (01) ==
LOC: LAB.DROPOF 01-25 12:56
PROVIDERS: PCP Internal Medicine; Visit Provider Internal Medicine
DX: E03.9 Hypothyroidism, unspecified (principal)
CPT/HCPCS: 84443

== ENCOUNTER 2025-04-11 14:40 | Outpatient (CLI) | payer MEDICARE, OTHER, SELFPAY ==
[2025-04-11 13:41] LABS: Hematocrit 48.3 % (37.0-47.0); Hemoglobin 15.8 g/dL (12.2-16.2); Immature Granulocytes % 0.3 %; Mean Corpuscular HGB Conc 32.7 g/dL (31.8-35.4); Mean Corpuscular Hemoglobin 29.6 pg (27.0-31.2); Mean Corpuscular Volume 90.4 fl (81-99); Nucleated Red Blood Cells % 0 %; Platelet Count 197 K/mm3 (142-424); Red Blood Count 5.34 M/mm3 (4.20-5.40); Red Cell Distribution Width-SD 47.8 fL; White Blood Count 6.5 K/mm3 (4.8-10.8)
[2025-04-11 14:55] LABS: Alanine Aminotransferase 25 U/L (12-78); Albumin Level 4.2 g/dl (3.5-5.0); Albumin/Globulin Ratio 1.6 (1.1-1.8); Alkaline Phosphatase 84 U/L (38-126); Anion Gap 10.3 mEq/L (5-15); Aspartate Amino Transferase 35 U/L (14-36); Bilirubin,Total 0.8 mg/dl (0.2-1.3); Blood Urea Nitrogen 19 mg/dl (7-17); Calcium 9.0 mg/dl (8.4-10.2); Carbon Dioxide 30 mmol/L (22.0-30.0); Chloride 103 mmol/L (98-107); Cholesterol 133 mg/dl (140-200); Creatinine,Serum 0.80 mg/dl (0.52-1.04); Estimated Glomerular Filt Rate 71 ml/min (>60); GFR (African American) 85 ML/MIN (>60); Globulin 2.6 g/dL (1.3-3.2); Glucose 80 mg/dl (74-100); HDL Cholesterol 49 mg/dl (40-60); Potassium 4.3 mmoL/L (3.5-5.1); Sodium 139 mmol/L (136-145); Total Protein,Serum 6.8 g/dl (6.3-8.2); Triglycerides 139 mg/dl (30-150)
--- OUTSIDE RECORDS SUMMARY | 2025-04-15 14:43 | XMS_ITS | Encounter Summary ---
Author Organization [employer] ([place], [place], [place], [place]) Address [address] [place] [address] Care Team Providers Care Product Distribution Specialist Name Role Phone Amadeo Foster MD Primary Care Provider [phone] Axel Ny MD Unavailable Reason for Visit * Reason Onset Date Comments Medication Refill 02/19/2025 Encounter Details Date Type Department Care Team (Late st Contact Info) Description 02/19/2025 Telephone [facility] Cardiology [address] [place] [address] Axel Ny MD [address] [facility], [facility] [address] [place] [address] Medication Refill Social History Tobacco Use Types Packs/Day Years [...] Date Record ed How often does anyone, pricilla molina family and friends, physically hurt you? Never 02/20/2024 How often does anyone, pricilla molina family and friends, insult or talk down to you? Never 02/20/2024 How often does anyone, inclu ding family and friends, threaten you with harm? [...] Do you speak a language other than Danish at [facility]? No 02/20/2024 Do you want help with [...] you used il legal drugs? Never 02/20/2024 Mental Health Answer Date Recorded Calculation of above two rows 0 Comments No Sex and Gender Information Value [...] Callie Langley RN documented in this encounter Miscellaneous Notes * Telephone Encounter - La Hassan CMA - 02/19/2025 2:25 PM EDT Rx's sent as requested to preferred pharmacy * Telephone Encounter - Oralia Lopez Denise - 02/19/2025 2:17 PM EDT Requesting refills on the potassium and jardiance. Send to [facility] by mail. documented in this encounter Plan of Treatment Upcoming Encounters Date Type Department Care Team (Late st Contact Info) Description 04/19/2025 9:15 AM EDT Office Visit [facility] Electrophysiology [address] [place], [place] [phone] Erick Severino MD [address] [place] [address] [address] [place] [address] 08/05/2025 9:30 AM EST Office Visit [facility] Cardiology [address] [place], [place] [phone] Axel Ny MD [address] [address] [address] [address] documented as of this encounter Visit Diagnoses Diagnosis CHF (congestive heart failure) (HCC) Congestive heart failure, unspecified documented in this encounter Care Teams Product Distribution Specialist Relationship Specialty Start Date End Date Amadeo Foster MD [address] [place] [address] PCP - General General Internal Medicine 08/05/22 Axel Ny MD [address], [facility] [address] [place] [phone] Interventional Cardiology 10/22/24 documented as of this encounter
--- OUTSIDE RECORDS SUMMARY | 2025-04-15 14:43 | XMS_ITS | Encounter Summary ---
Author Organization [employer] ([place], [place], [place], [place]) Address [address] [place] [address] Care Team Providers Care Phlebotomy Instructor Name Role Phone Amadeo Foster MD Primary Care Provider [phone] Axel Ny MD Unavailable Reason for Visit * Reason Onset Date Comments Medication Refill 03/12/2025 Encounter Details Date Type Department Care Team (Late st Contact Info) Description 03/12/2025 Telephone [facility] Cardiology [address] [place] [address] Axel Ny MD [address] [facility], [facility] [address] [place] [address] Medication Refill Social History Tobacco [...] Do you speak a language other than Icelandic at [facility]? No 02/20/2024 Do you want help with [...] Telephone Encounter - La Hassan CMA - 03/12/2025 3:47 PM EDT Rx sent as requested * Telephone Encounter - Oralia Lopez Denise - 03/12/2025 3:23 PM EDT Patient requesting refill on the furosemide. Send to [facility] documented in this encounter Plan of Treatment Upcoming Encounters Date Type Department Care Team (Late st Contact Info) Description 04/19/2025 9:15 AM EDT Office Visit [facility] Electrophysiology [address] [place], [place] [phone] Erick Severino MD [address] [place] [address] [address] [place] [address] 08/05/2025 9:30 AM EST Office Visit [facility] Cardiology [address] [place] [address] Axel Ny MD [address] [place] [phone] documented as of this encounter Visit Diagnoses Diagnosis CHF (congestive heart failure) (HCC) Congestive heart failure, unspecified documented in this encounter Care Teams Phlebotomy Instructor Relationship Specialty Start Date End Date Amadeo Foster MD [address] [place] [address] PCP - General General Internal Medicine 08/05/22 Axel Ny MD [address], [facility] [address] [place] [address] Interventional Cardiology 10/22/24 documented as of this encounter
--- OUTSIDE RECORDS SUMMARY | 2025-04-15 14:44 | XMS_ITS | Clinical Summary ---
Author Organization [facility] Address [address] [id number] Care Team Providers Care Wastewater Manager Name Role Phone Amadeo Foster MD Primary Care Provider [phone] Amadeo Foster MD Unavailable [phone] Allergies No known active allergies Medications apixaban (Eliquis) 5 MG tablet Take 1 tablet (5 mg) by mouth 2 (two) times a day. Active aspirin 81 MG EC tablet Take 1 tablet (81 mg) by mouth 1 (one) time each day. Active atenolol (Tenormin) 50 MG tablet Take by mouth 1 (one) time each day. Active ezetimibe (Zetia) 10 MG tablet Take 1 tablet (10 mg) by mouth 1 (one) time each day. Active levocetirizine (Xyzal) 5 MG tablet Take by mouth 1 (one) time each day in the evening. Active levothyroxine (Synthroid, Levoxyl) 88 MCG tablet Take 1 tablet (88 mcg) by mouth 1 (one) time each day before breakfast. Active losartan-hydroCH LOROthiazide (Hyzaar) 50-12.5 MG tablet Take 1 tablet by mouth 1 (one) time each day. Active magnesium oxide (Mag-Ox) 400 (240 Mg) MG tablet Take 1 tablet (400 mg) by mouth 1 (one) time each day. Active nitroglycerin (Nitrodur) 0.4 MG/HR patch Place 1 patch on the skin 1 (one) time each day. Active rosuvastatin (Crestor) 20 MG tablet Take 1 tablet (20 mg) by mouth every night. Active sotalol (Betapace) 160 MG tablet Take by mouth. Active Active Problems No known active problems Social History Tobacco Use Types Packs/Day Years Used Date Smoking Tobacco: Unknown Tobacco Cessation:Counseling Given: Not Answered Comments Unknown Sex and Gender Information Value Date Recorded Sex Assigned at Not on file Legal Sex Female 8:51 PM EDT Gender Identity Not on file Sexual Orientation Not on file Last Filed Vital Signs Vital Sign Reading Time Taken Comments Blood Pressure 125/84 09/29/2023 9:58 AM EST Pulse 78 09/29/2023 9:58 AM EST Temperature - - Respiratory Rate - - Oxygen Saturation - - Inhaled Oxygen Concentration - - Weight 76.7 kg (169 lb) 09/29/2023 9:58 AM EST Height 154.9 cm (5' 1 ) 09/29/2023 9:58 AM EST Body Mass Index 31.93 09/29/2023 9:58 AM EST Plan of Treatment Health Maintenance Due Date Last Done Comments [facility]-Bone Density Scan 1952 [facility]-Depression Screening 1952 [facility]-Hepatitis C Screening 1952 [facility]-Medicare Annual Wellness (AWV) 1952 [facility]-Infant/Child/Adol SDOH Screenings 1952 [id number] Vaccine (#1) 1957 [facility]- SDOH Screenings 1970 [facility]-Adult SDOH Screenings 1970 [facility]-DTaP,Tdap,and Td Vaccine s (1 - Tdap) 1971 CT Colonography 1997 Colonoscopy 1997 FIT-DNA 1997 FIT 1997 FOBT 1997 Sigmoidoscopy 1997 [facility]-Colorectal Cancer Screening 1997 [facility]-Breast Cancer Screening 2002 [facility]-Pneumococcal Vaccine: 50 + Years (1 of 1 - PCV) 2002 [facility]-Zoster Vaccines (1 of 2) 2002 [facility]-RSV Vaccine: 60+ Years o r (1 - Risk 60-74 years 1-dose series) 2012 [facility]-Influenza Vaccine (#1) 2025 [facility]-Obesity Intervention Completed 024, 09/29/2023 HPV Vaccines Aged Out No longer eligi ble based on patient's age to complete this topic [facility]-HIB Vaccines Aged Out No longer e ligible based on patient's age to complete this topic [facility]-Hepatitis A Vaccines Aged Out No longer eligible based on patient's age to complete this topic [facility]-IPV Vaccines Aged Out No longer e ligible based on patient's age to complete this topic [facility]-Rotavirus Vaccines Aged Out No lo nger eligible based on patient's age to complete this topic Insurance MEDICARE [facility] MEDICARE [facility] Care Teams Wastewater Manager Relationship Specialty Start Date End Date Amadeo Foster MD [address] [place] [address] PCP - General 08/16/23 Amadeo Foster MD [address] [place] [address] 08/16/23
--- OUTSIDE RECORDS SUMMARY | 2025-04-15 14:44 | XMS_ITS | Encounter Summary ---
Author Organization [employer] ([place], [place], [place], [place]) Address [address] [place] [address] Care Team Providers Care Vocational Technical Education Director Name Role Phone Amadeo Foster MD Primary Care Provider [phone] Loreta Dempsey APRN Unavailable [phone] Axel Ny MD Unavailable Reason for Visit * Reason Comments Med Change Request Encounter Details Date Type Department Care Team (Late st Contact Info) Description 03/12/2024 [facility] Electrophysiology [address] [place] [address] Erick Severino MD [address] [facility] [address] [place] [id number] SSS (sick sinus syndrome) ([facility]) Social History Tobacco Use Types Packs/Day Years Used Date Smoking Tobacco: Never Smokeless Tobacco: Never Alcohol Use Standard Drinks/Week [...] Do you speak a language other than Czech at [facility]? No 02/20/2024 Do you want help [...] Description 04/19/2025 9:15 AM EDT Office Visit [facility] Electrophysiology [address] [place] [phone] [place] [address] [place] [address] [address] [place] [phone] 08/05/2025 9:30 AM EST Office Visit [facility] Cardiology [address] [place] [phone] Axel Ny MD [address], [facility] [address] [place] [phone] documented as of this encounter Visit Diagnoses Diagnosis SSS (sick sinus syndrome) (HCC) Sinoatrial node dysfunction documented in this encounter Care Teams Vocational Technical Education Director Relationship Specialty Start Date End Date Amadeo Foster MD [address] [place] [address] PCP - General General Internal Medicine 08/05/22 Loreta Dempsey, TREE WORKER [address] [place] [address] [place] [phone] Cardiology 12/27/23 10/21/24 Axel Ny MD [address], [place] [address] [place] [address] Interventional Cardiology 10/22/24 documented as of this encounter
--- OUTSIDE RECORDS SUMMARY | 2025-04-15 14:44 | XMS_ITS | Clinical Summary ---
Author Organization [employer] ([place], [place], [place]) Address [address] [place] [address] Care Team Providers Care Inside Sales Recruiter Name Role Phone Amadeo Foster MD Primary Care Provider [phone] Axel Ny MD Unavailable Allergies No known active allergies Medications aspirin 81 MG EC tablet Take 1 tablet (81 mg total) by mouth daily. Active levocetirizine (XYZAL) 5 MG tablet Take 1 tablet (5 mg total) by mouth every evening. Active nitroglycerin (NITROSTAT) 0.[address] 1 tablet (0.4 mg total) under the tongue every 5 (five) minutes as needed Put 1 pill under tongue every 5min as needed for chest pain.No more than 3 doses in 15min.Call 911 if pain unrelieved 5min after 1st dose. Active rosuvastatin (CRESTOR) 20 MG tablet Take 1 tablet (20 mg total) by mouth nightly. Active ezetimibe (ZETIA) 10 mg tablet Take 1 tablet (10 mg total) by mouth daily. Active LORazepam (ATIVAN) 0.5 MG tablet Take 1 tablet (0.5 mg total) by mouth 3 (three) times daily as needed. 4 Active meclizine (ANTIVERT) 25 mg tablet Take 1 tablet (25 mg total) by mouth 3 (three) times daily as needed. 4 Active magnesium oxide (MAG-OX) 400 mg tablet Take 1 tablet by mouth once daily 90 tablet 3 4 Active metoprolol succinate (Toprol XL) 50 MG 24 hr tabletIndicatio ns:CHF (congestive heart failure) (HCC) Take 1 tablet (50 mg total) by mouth daily. 90 tablet 1 5 Active Additional Information Patient taking differently: 25 mgoral Daily, Reported on 01/31/2025 sacubitriL-vals stuart (Entresto) 24-26 mg tabletIndicatio ns:CHF (congestive heart failure) (HCC) Take 1 tablet by mouth 2 (two) times daily. 180 tablet 2 5 Active Additional Information Patient taking differently:1 tablet oralDaily, Patient only takes one tablet daily due to low blood pressure, Reported on 01/31/2025 levothyroxine (SYNTHROID) 75 MCG tablet Take 1 tablet (75 mcg total) by mouth Daily (0600). Active dofetilide (TIKOSYN) 500 MCG capsuleIndicati ons:SSS (sick sinus syndrome) (HCC) Take 1 capsule (500 mcg total) by mouth 2 (two) times daily. 180 capsule 4 5 Active apixaban (Eliquis) 5 mg tab tablet Take 1 tablet (5 mg total) by mouth 2 (two) times daily. 180 tablet 3 5 Active empagliflozin (JARDIANCE) 10 mg tabletIndicatio ns:CHF (congestive heart failure) (HCC) Take 1 tablet (10 mg total) by mouth in the morning. 90 tablet 3 5 Active potassium chloride (KLOR-CON) 10 MEQ tabletIndicatio ns:CHF (congestive heart failure) (HCC) Take 1 tablet (10 mEq total) by mouth daily. 90 tablet 3 5 Active furosemide (LASIX) 20 MG tabletIndicatio ns:CHF (congestive heart failure) (HCC) Take 1 tablet (20 mg total) by mouth daily. 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 Resolved Problems Problem Noted Date Diagnosed Date Resolved Date Vertigo 07/07/2023 05/05/2024 Nasal bone fracture 07/07/2023 05/05/20 Atrial fibrillation and flutter 07/06/2023 05/05/2024 At risk for sleep apnea 11/05/202204/2023 Encounter for cardioversion procedure 11/05/2022 05/05/2024 Encounter for general adult medical examination without abnormal findings 11/05/2022 Hypothyroidism 11/05/2022 07/07/2023 ad terminal makeup operator (current) use of anticoagulants 10/09/2021 07/07/2023 Other fpc (current) drug therapy 10/09/2021 05/05/2024 Hypomagnesemia 07/01/2021 07/07/2023 Asymmetrical sensorineural hearing loss 07/18/2018 07/07/2023 Atrial fibrillation 07/07/20 23 Asthma 07/07/2023 On continuous oral anticoagulation 05/05/2024 Stented coronary artery 04/2023 Encounters Date Type Department Care Team Description 03/12/2025 Telephone [facility] Cardiology [address] [place], [place] [phone] Axel Ny MD Medication Refill 02/19/2025 Telephone [facility] Cardiology [address] [place], [place] [phone] Axel Ny MD Medication Refill 02/11/2025 3:00 AM EDT Clinical Support [facility] Electrophysiology [address] [place] [phone] Isai Nolan MD Encounter for adjustment or management of cardiac device (Primary Dx); Cardiac pacemaker in situ; SSS (sick sinus syndrome) (HCC); Atrial fibrillation, persistent (HCC) 01/31/2025 9:30 AM EDT Office Visit [facility] Cardiology [address] [place] [phone] Axel Ny MD Coronary artery disease involving kletsel dehe wintun coronary artery of k[place]sel dehe [place] heart with other form of angina pectoris (HCC) (Primary Dx); 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); Pulmonary hypertension (HCC); Dyspnea on exertion; Paroxysmal atrial fibrillation (HCC); Current use of ad terminal makeup operator anticoagulation; ad terminal makeup operator current use of antiarrhythmic drug; Benign essential hypertension; Dyslipidemia; Cardiac pacemaker in situ 01/31/2025 Travel 01/16/2025 2:30 PM EDT Office Visit [facility] Electrophysiology [address] [place] [address] Erick Severino MD Encounter for adjustment or management of cardiac device (Primary Dx) from Last 3 Months Family History Medical History Relation Name Comments Stroke Brother Heart failure Father Emphysema Mother Relation Name Status Comments Brother Father Mother Social History Tobacco Use Types Packs/Day Years Used Date Smoking Tobacco: Never Passive Smoke Exposure: Past Smokeless Tobacco: Never Tobacco Cessation:Counseling Given: Not Answered Alcohol Use Standard Drinks/Week Comments Not Currently 0 (1 standard drink = 0.6 oz pur e alcohol) Utilities Answer Date Recorded In the past 12 months, has t he electric, gas, oil, or water [employer] threatened to shut off services in your home? No 02/20/2024 Interpersonal Safety Answer Date Record ed How often does anyone, pricilla molina family and friends, physically hurt you? Never 02/20/2024 How often does anyone, jonathanamrit tracy family and friends, insult or talk down to you? Never 02/20/2024 How often does anyone, jonathanamrit tracy family and friends, threaten you with harm? [...] Do you speak a language other than [place] at [facility]? No 02/20/2024 Do you want help with [...] file Not on file Not on file Last Filed Vital Signs Vital Sign Reading Time Taken Comments Blood Pressure 120/76 01/31/2025 9:35 AM EDT Pulse 80 01/31/2025 9:35 AM EDT Temperature 36.8 C (98.3 F) 01/08/2025 2:09 PM EDT Respiratory Rate 20 01/08/2025 7:00 PM EDT Oxygen Saturation 98% 01/16/2025 3:10 PM EDT Inhaled Oxygen Concentration - - Weight 74.8 kg (164 lb 12.8 oz) 01/31/2025 9:35 AM EDT Height 154.9 cm (5' 1 ) 01/31/2025 9:35 AM EDT Body Mass Index 31.14 01/31/2025 9:35 AM EDT Plan of Treatment Upcoming Encounters Date Type Department Care Team (Late st Contact Info) Description 04/19/2025 9:15 AM EDT Office Visit [facility] Electrophysiology [address] [place], [place] [phone] Erick Severino MD [address] [place] [address] [address] [place] [phone] 08/05/2025 9:30 AM EST Office Visit [facility] Cardiology [address] [place] [phone] Axel Ny MD [address] [place] [address] [address] [place] [address] Health Maintenance Due Date Last Done Comments Medicare Initial AWV G0438 CT Colonography 1950 Colonoscopy 1952 Colorectal Cancer Screening 1952 DXA SCAN 1952 FOBT/FIT 1952 Fit-DNA (Cologuard) 1952 Sigmoidoscopy 1952 Depression Screening (12+) 1964 Hepatitis C Screening 1970 DTAP/TDAP/TD VACCINES (1 - Tdap) 1971 Shingles Vaccine (Zoster) (1 of 2) 1971 Breast Cancer Screening 1992 Respiratory Syncytial Virus (RSV) Adult or (1 - Risk 60-74 years 1-dose series) 2012 Pneumococcal 50+ years (2 of 2 - PPSV23) 10/29/2019 09/03/2019 COVID-19 VACCINE (4 - season) 2024 07/15/2021, 11/09/2020, 10/12/2020 Falls Risk Screening 08/29/2024 Influenza Vaccine (#1) 2025 , 06/19/2020, 09/03/2019 Tobacco Cessation Counseling and Screening (12+) 01/31/2026 01/31/2025 Medical Devices Implanted Type Area Warehouse Production Worker Device Identifier Shelf Expiration Date Model / Serial / Lot Pacemaker Assurity [facility] [id number] - [id number] Implanted:Qt y: 1 on 01/08/2025 by Erick Severino MD at [facility] PACEMAKER/ICD CHAMBER DEVICE Left: Chest [employer] MED:CARDIAC RHYM MGMT [id number] 10/26/2025 [id number] / [id number] / Pacemakers-1 10/01/2012 Implanted: (Quantity not on file) Pacemakers [employer] 1210 / [id number] / Description:OV 01-02-24 DEVYN -8 MO LEFT Procedures Procedure Name Priority Date/Time Associated Diagnosis Comments FS_MODEL_IP_ECG 12-LEAD Routine 01/31/2025 9:27 AM EDT Coronary artery disease involving kletsel dehe wintun coronary artery of kletsel dehe w[place] heart with other form of angina pectoris (HCC) Dyspnea on exertion Paroxysmal atrial fibrillation (HCC) FS_MODEL_IP_ECG 12-LEAD Routine 01/16/2025 3:08 PM EDT Encounter for adjustment or management of cardiac device from Last 3 Months Results * ECG 12 lead (01/31/2025 9:27 AM EDT) Only the most recent of2 resultswithin the time period is included. us Axel Ny MD ECG ORDERABLES Final Result from Last 3 Months Insurance [place] [id number] MEDICARE PART A B Advance Directives For more information, please contact: [phone] * Full Code (Latest Code Status on File) Date Activated Date Inactivated Comments 01/08/2025 12:43 PM 01/09/2025 4:27 AM * Full Code Date Activated Date Inactivated Comments 02/20/2024 2:52 PM 02/23/2024 3:23 PM If no pulse: No intervention If has pulse: Use intubation, mechanical ventilation, defibrillation, ACLS medications, or cardioversion as indicated. Call HEAD OF STOCK * Full Code Date Activated Date Inactivated Comments 02/20/2024 2:15 PM 02/20/2024 2:51 PM * Full Code Date Activated Date Inactivated Comments 02/15/2024 3:31 PM 02/16/2024 11:42 AM * Full Code Date Activated Date Inactivated Comments 07/07/2023 11:09 AM 07/08/2023 12:09 PM Care Teams Inside Sales Recruiter Relationship Specialty Start Date End Date Amadeo Foster MD [address] [place] [address] [place] [phone] PCP - General General Internal Medicine 08/05/22 Axel Ny MD [address] , [facility] [address] [place] [address] Interventional Cardiology 10/22/24
--- OUTSIDE RECORDS SUMMARY | 2025-04-15 14:44 | XMS_ITS | Referral Summary ---
Author Organization [employer] ([place], [place], [place], [place]) Address [address] [place] [address] Care Team Providers Care Blast Furnace Helper Name Role Phone Amadeo Foster MD Primary Care Provider [phone] Axel Ny MD Unavailable Encounters Date Type Department Care Team Description 03/12/2025 Telephone [facility] Cardiology [address] [place] [phone] Axel Ny MD Medication Refill 02/19/2025 Telephone [facility] Cardiology [address] [place] [phone] Axel Ny MD Medication Refill 02/11/2025 3:00 AM EDT Clinical Support [facility] Electrophysiology [address] [place] [phone] Isai Nolan MD Encounter for adjustment or management of cardiac device (Primary Dx); Cardiac pacemaker in situ; SSS (sick sinus syndrome) (HCC); Atrial fibrillation, persistent (HCC) 01/31/2025 Travel 01/31/2025 9:30 AM EDT Office Visit [facility] Cardiology [address] [place] [phone] Axel Ny MD Coronary artery disease involving houlton coronary artery of houlton heart with other form of angina pectoris (HCC) (Primary Dx); 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); Pulmonary hypertension (HCC); Dyspnea on exertion; Paroxysmal atrial fibrillation (HCC); Current use of buttermaker helper anticoagulation; alf current use of antiarrhythmic drug; Benign essential hypertension; Dyslipidemia; Cardiac pacemaker in situ 01/16/2025 2:30 PM EDT Office Visit [facility] Electrophysiology [address] [place] [phone] Erick Severino MD Encounter for adjustment or management of cardiac device (Primary Dx) from Last 3 Months Allergies No known active allergies Medications aspirin [...] Mixed hyperlipidemia Coronary artery disease invo lving houlton coronary artery of houlton heart without angina pectoris Resolved Problems Problem Noted Date Diagnosed Date Resolved Date Vertigo 07/07/2023 05/05/2024 Nasal bone fracture 07/07/2023 05/05/20 24 Atrial fibrillation and flutter 07/06/2023 05/05/2024 At risk for sleep apnea 11/05/202204/2023 Encounter for cardioversion procedure 11/05/2022 05/05/2024 Encounter for general adult medical examination without abnormal findings 11/05/2022 Hypothyroidism 11/05/2022 07/07/2023 alf (current) use of anticoagulants 10/09/2021 07/07/2023 Other prison (current) drug therapy 10/09/2021 05/05/2024 Hypomagnesemia 07/01/2021 07/07/2023 Asymmetrical sensorineural hearing loss 07/18/2018 07/07/2023 Atrial fibrillation 07/07/20 23 Asthma 07/07/2023 On continuous oral anticoagulation 05/05/2024 Stented coronary artery 04/2023 Social History Tobacco Use Types Packs/Day Years [...] harm? Never 02/20/2024 How often does anyone, jonathanamrit tracy family and friends, scream or curse at [...] Do you speak a language other than [place] [facility]? No 02/20/2024 Do you want help [...] Mass Index 31.14 01/31/2025 9:35 AM EDT Functional Status * Are you deaf or do you have serious difficulty hearing? Answer Date of Assessment Author No 02/23/2024 11:53 AM Callie Langley RN * Are you blind or do you have serious difficulty seeing, even when wearing glasses? Answer Date of Assessment Author No 02/23/2024 11:53 AM REUBENT Callie Adame RN * Do you have serious difficulty walking or climbing stairs? Answer Date of Assessment Author No 02/23/2024 11:53 AM REUBENT Callie Adame RN * Do you have serious difficulty dressing or bathing? Answer Date of Assessment Author No 02/23/2024 11:53 AM Callie Langley RN * Because of a physical, mental, or emotional condition, do you have serious difficulty doing errandsalone such as visiting the doctor? Answer Date of Assessment Author No 02/23/2024 11:53 AM Callie Langley RN Mental Status * Because of a physical, mental, or emotional condition, do you have serious difficulty concentrating, remembering, or making decisions? (5 years old or older) Answer Entry Date Author No 02/23/2024 11:53 AM Callie Langley RN Plan of Treatment Upcoming Encounters Date Type Department Care Team (Late st Contact Info) Description 04/19/2025 9:15 AM EDT Office Visit [facility] Electrophysiology [address] [place] [phone] Erick Severino MD [address] [facility] [address] [place] [address] 08/05/2025 9:30 AM EST Office Visit [facility] Cardiology [address] [place] [phone] Axel Ny MD [address] [place] [address] [address], [address] [place] [address] Medical Devices Implanted Type Area Director Of Academic Support Device Identifier Shelf Expiration Date Model / Serial / Lot Pacemaker Assurity [facility] [id number] - [id number] Implanted:Qt y: 1 on 01/08/2025 by Erick Severino MD at [facility] PACEMAKER/ICD CHAMBER DEVICE Left: Chest [employer] MED:CARDIAC RHYM MGMT [id number] 10/26/2025 [id number] / [id number] / Pacemakers-1 10/01/2012 Implanted: (Quantity not on file) Pacemakers [employer] 1210 / [id number] / Description:OV 01-02-24 DEVYN -8 MO LEFT Procedures Procedure Name Priority Date/Time Associated Diagnosis Comments FS_MODEL_IP_ECG 12-LEAD Routine 01/31/2025 9:27 AM EDT Coronary artery disease involving houlton coronary artery of houlton heart with other form of angina pectoris [...] Result from Last 3 Months Insurance [place] [id number] MEDICARE PART A B Advance Directives For more information, please contact: [phone] * Full Code (Latest Code Status on File) Date Activated Date Inactivated Comments 01/08/2025 12:43 PM 01/09/2025 4:27 AM * Full Code Date Activated Date Inactivated Comments 02/20/2024 2:52 PM 02/23/2024 3:23 PM If no pulse: No intervention If has pulse: Use intubation, mechanical ventilation, defibrillation, ACLS medications, or cardioversion as indicated. Call SENIOR FUNCTIONAL ANALYST * Full Code Date Activated Date Inactivated Comments 02/20/2024 2:15 PM 02/20/2024 2:51 PM * Full Code Date Activated Date Inactivated Comments 02/15/2024 3:31 PM 02/16/2024 11:42 AM * Full Code Date Activated Date Inactivated Comments 07/07/2023 11:09 AM 07/08/2023 12:09 PM Care Teams Blast Furnace Helper Relationship Specialty Start Date End Date Amadeo Foster MD [address] [place] [address] [place] [phone] PCP - General General Internal Medicine 08/05/22 Axel Ny MD [address], [facility] [address] [place] [address] Interventional Cardiology 10/22/24
--- OUTSIDE RECORDS SUMMARY | 2025-04-15 14:44 | XMS_ITS | Clinical Summary ---
Author Organization [facility] Address [facility] [place] [address] Care Team Providers Care Sap Portal Developer Name Role Phone Unknown, Attending Provider Primary Care Provide r Unavailable Source Comments This information has been disclosed to you from confidential records protectedfrom disclosure by state law. You shall make no further disclosure of thisinformation without the specific, written, and informed release of theindividual to whom it pertains, or as otherwise permitted by law. A generalauthorization for the release of medical or other information is not sufficientfor the purposes of therelease of HIV test results or diagnoses. [id number] Health Allergies No known active allergies Medications apixaban (ELIQUIS) 5 mg (74 tabs) DsPk Take 10 mg by mouth twice a day for 7 days; followed by 5 mg twice a day. Active aspirin 81 MG EC tablet Take 1 tablet (81 mg total) by mouth daily. Active atenoloL (TENORMIN) 50 MG tablet Take 1 tablet (50 mg total) by mouth daily. Active ezetimibe (ZETIA) 10 mg tablet Take 1 tablet (10 mg total) by mouth daily. Active levocetirizine (XYZAL) 5 MG tablet Take 1 tablet (5 mg total) by mouth every evening. Active levothyroxine (SYNTHROID) 88 MCG tablet Take 1 tablet (88 mcg total) by mouth every morning before breakfast. Active losartan-hydroc hlorothiazide (HYZAAR) 50-12.5 mg per tablet Take 1 tablet by mouth daily. Active magnesium oxide (MAG-OX) 400 mg tablet Take 1 tablet (400 mg total) by mouth 2 times a day. Active nitroGLYCERIN (NITROSTAT) 0.[address] 1 tablet (0.4 mg total) under the tongue every 5 minutes as needed for Chest pain. Dissolve 1 tablet under the tongue for chest pain. Repeat if needed every 5 minutes for 2 more doses. Active rosuvastatin (CRESTOR) 20 MG tablet Take 1 tablet (20 mg total) by mouth daily. Active sotaloL (BETAPACE) 160 MG tablet Take 2 tablets (320 mg total) by mouth 2 times a day. Active dofetilide (TIKOSYN) 500 MCG capsule Take 1 capsule (500 mcg total) by mouth 2 times a day. Active Social History Tobacco Use Types Packs/Day Years Used Date Smoking Tobacco: Never Smokeless Tobacco: Never Tobacco Cessation:Counseling Given: Not Answered Alcohol Use Standard Drinks/Week Comments Never 0 (1 standard drink = 0.6 oz pur e alcohol) PHQ-2 Answer Date Recorded PHQ-2 Total Score 0 12/06/2023 Yearly Questionnaire Answer Date Record ed Do you need any assistance w ith obtaining housing, meals, medication, transportation or medical equipment? No 12/05 Assistance needed for: Not on file 4 Yearly Questionnaire Answer Date Record ed Do you need any assistance w ith obtaining housing, meals, medication, transportation or medical equipment? No 12/05 Assistance needed for: Not on file 4 Yearly Questionnaire Answer Date Record ed Do you need any assistance w ith obtaining housing, meals, medication, transportation or medical equipment? No 12/05 Assistance needed for: Not on file 4 Comments No Sex and Gender Information Value Date Recorded Sex Assigned at Not on file Legal Sex Female 10:10 AM EDT Gender Identity Not on file Sexual Orientation Not on file Last Filed Vital Signs Vital Sign Reading Time Taken Comments Blood Pressure 142/87 03/06/2024 10:24 AM EDT Pulse 84 03/06/2024 10:24 AM EDT Temperature - - Respiratory Rate - - Oxygen Saturation 98% 03/06/2024 10:24 AM EDT Inhaled Oxygen Concentration 98% 03/06/2024 1 0:24 AM EDT Weight 76.7 kg (169 lb) 03/06/2024 10:24 AM EDT Height 154.9 cm (5' 1 ) 03/06/2024 10:24 AM EDT Body Mass Index 31.93 03/06/2024 10:24 AM EDT Plan of Treatment Health Maintenance Due Date Last Done Comments Abnormal Colonoscopy Follow Up 1950 Diabetes Screening 1952 Alcohol Misuse Screening 1970 Immunization: DTaP/Tdap/Td (1 - Tdap) 1971 Mammogram (MyChart) 1992 Cologuard (FIT-DNA) 1997 Colonoscopy 1997 Colorectal Cancer Screening (MyChart) 1997 Stool Testing (gFOBT) 1997 Immunization: Zoster (1 of 2) 2002 Osteoporosis Screening (DXA Scan) 2002 Immunization: Pneumococcal ( 2 of 2 - PCV20 or PCV21) 09/03/2020 09/03/2019 Immunization: COVID-19 ( season) 2024 07/15/2021, 11/09/2020, 10/12/2020 Depression Screening 12/05/2024 12/06/2023 Immunization: Influenza (MyC kelley) (#1) 2025 06/12/2021, 06/19/2020, 09/03/2019 Immunization: RSV (Adult) (1 - 1-dose 75+ series) 2027 Insurance MEDICARE A AND B Member Subscriber Plan / Payer (Ef fective 2017-Present) Name:Phyllis Choi Alpa Relation to Subscriber:Self Name:Phyllis Choi Alpa Payer ID:[id number] Group ID:Not on file Type:Medicare Address: [address] [place] [address] Care Teams Sap Portal Developer Relationship Specialty Start Date End Date Unknown, Attending Provider PCP - General 12/26/23
== END 2025-04-11 23:59 ==
LOC: LAB.DROPOF 04-15 14:41
PROVIDERS: PCP Internal Medicine; Visit Provider Internal Medicine
DX: I11.0 Hypertensive heart disease with heart failure (principal); I50.20 Unspecified systolic (congestive) heart failure; I48.0 Paroxysmal atrial fibrillation; E78.5 Hyperlipidemia, unspecified; I25.10 Atherosclerotic heart disease of native coronary artery without angina pectoris
CPT/HCPCS: 80053; 80061; 85025

== ENCOUNTER 2025-07-10 16:49 | Outpatient (CLI) | payer MEDICARE, OTHER, SELFPAY ==
--- OUTSIDE RECORDS SUMMARY | 2025-04-10 02:00 | XMS_ITS | Encounter Summary ---
Author Organization [employer] ([place], [place], [place], [place], [place]) Address [address] [place] [address] Care Team Providers Care Slip Sheeter Name Role Phone Amadeo Foster MD Primary Care Provider [phone] Axel Ny MD Unavailable Reason for Visit * Reason Comments Pacemaker /ICD Home Monitoring Encounter Details Date Type Department Care Team (Late st Contact Info) Description 04/10/2025 3:00 AM EDT Clinical Support [facility] Electrophysiology [address] [place] [phone] Erick Severino MD [address] [facility] [place] [facility] [address] [place] [address] Encounter for adjustment or management of cardiac device (Primary Dx); Cardiac pacemaker in situ; SSS (sick sinus syndrome) (HCC); Atrial fibrillation, persistent (HCC) Social History Tobacco Use Types Packs/Day Years Used Date Smoking Tobacco: Never Passive Smoke Exposure: Past Smokeless Tobacco: Never Alcohol Use Standard Drinks/Week Comments Not Currently 0 (1 standard drink = 0.6 oz pur e alcohol) Utilities Answer Date Recorded In the past 12 months, has t he electric, gas, oil, or water company threatened to shut off services in your home? No 02/20/2024 Interpersonal Safety Answer Date Record ed How often does anyone, inclu ding family and friends, physically hurt you? Never 02/20/2024 How often does anyone, pricilla molina family and friends, insult or talk down to you? Never 02/20/2024 How often does anyone, pricilla molina family and friends, threaten you with harm? Never 02/20/2024 How often does anyone, pricilla molina family and friends, scream or curse at you? Never 02/20/2024 Housing Stability Answer Date Recorded What is your living situation today? I have a st [address]wn place to live 02/20/[address] you li ve. Do you have problems with any of the following? None of the above 02/20/2024 Food Insecurity Answer Date Recorded Within the past 12 months, y ou worried that your food would run out before you got money to buy more. Never true 02/20/2024 Within the past 12 months, t he food you bought just didn't last and you didn't have money to get more. Never true 02/20/2024 Transportation Needs Answer Date Record ed In the past 12 months, has l ack of reliable transportation kept you from medical appointments, meetings, work or from getting things needed for daily living? No 02/20/2024 Financial Resource Strain Answer Date R ecorded How hard is it for you to pa y for the very basics like food, housing, medical care, and heating? Would you say it is: Not hard at all 02/20/2024 Employment Answer Date Recorded Do you want help finding or keeping work or a job? I do not need or want help 02/20/2024 Family and Community Support Answer Edy e Recorded If for any reason you need h elp with day-to-day activities such as bathing, preparing meals, shopping, managing finances, etc., do you get the help you need? I don't need any help 02/20/2024 Feeling Lonely or Isolated 0 02/19 Educational Attainment Answer Date Eddie rded Do you speak a language other than Zimbabwean at [facility]? No 02/20/2024 Do you want help with school or training? For example, starting or completing job training or getting a high school diploma, GED or equivalent. No 02/20/2024 Physical Activity Answer Date Recorded Number of minutes of exercise per week 420 02/20/2024 Self Management Answer Date Recorded Because of a physical, menta l, or emotional condition, do you have serious difficulty concentrating, remembering, or making decisions? (5 years or older) No 02/20/2024 Because of a physical, menta l, or emotional condition, do you have difficulty doing errands alone such as visiting a doctor's office or shopping? (15 years or older) No 02/20/2024 Substance Use Answer Date Recorded How many times in the past y ear have you used prescription drugs for non-medical reasons? Never 02/20/2024 How many times in the past year have you used il legal drugs? Never 02/20/2024 Comments No Sex and Gender Information Value Date Recorded Sex Assigned at Not on file Legal Sex Female 1:33 PM CDT Gender Identity Not on file Sexual Orientation Not on file Occupation Industry Job Start Date Job End Date Retired Not on file Not on file Not on file documented as of this encounter Functional Status * Are you deaf or do you have serious difficulty hearing? Answer Date of Assessment Author No 02/23/2024 11:53 AM Callie Langley RN * Are you blind or do you have serious difficulty seeing, even when wearing glasses? Answer Date of Assessment Author No 02/23/2024 11:53 AM Callie Langley RN * Do you have serious difficulty walking or climbing stairs? Answer Date of Assessment Author No 02/23/2024 11:53 AM Callie Langley RN * Do you have serious difficulty dressing or bathing? Answer Date of Assessment Author No 02/23/2024 11:53 AM Callie Langley RN * Because of a physical, mental, or emotional condition, do you have serious difficulty doing errandsalone such as visiting the doctor? Answer Date of Assessment Author No 02/23/2024 11:53 AM Callie Langley RN documented as of this encounter Mental Status * Because of a physical, mental, or emotional condition, do you have serious difficulty concentrating, remembering, or making decisions? (5 years old or older) Answer Entry Date Author No 02/23/2024 11:53 AM Callie Langley RN documented in this encounter Plan of Treatment Upcoming Encounters Date Type Department Care Team (Late st Contact Info) Description 08/05/2025 9:30 AM EST Office Visit [facility] Cardiology [address] [place] [phone] Axel Ny MD [address] [facility], [facility] [address] [place] [address] 10/23/2025 9:30 AM EST Office Visit [facility] Electrophysiology [address] [place] [phone] Erick Severino MD [address] [facility] [address] [place] [address] documented as of this encounter Visit Diagnoses Diagnosis Encounter for adjustment or management of cardiac device- Primary Cardiac pacemaker in situ SSS (sick sinus syndrome) (HCC) Sinoatrial node dysfunction Atrial fibrillation, persistent (HCC) documented in this encounter Care Teams Slip Sheeter Relationship Specialty Start Date End Date Amadeo Foster MD [address] [place] [address] [place] [address] PCP - General General Internal Medicine 08/05/22 Axel Ny MD [address] [place] , [facility] [address] [place] [address] Interventional Cardiology 10/22/24 documented as of this encounter
--- OUTSIDE RECORDS SUMMARY | 2025-07-10 16:51 | XMS_ITS | Encounter Summary ---
Author Organization [employer] ([place], [place], [place], [place], [place]) Address [address] [place] [address] Care Team Providers Care Reinforcement Maker Name Role Phone Amadeo Foster MD Primary Care Provider [phone] Axel Ny MD Unavailable Reason for Visit * Reason Onset Date Comments Medication Refill 07/01/2025 Encounter Details Date Type Department Care Team (Late st Contact Info) Description 07/01/2025 Telephone [facility] Cardiology [address] [place] [address] Axel Ny MD [address] [facility], [facility] [address] [place] [address] Medication Refill Social History Tobacco [...] Do you speak a language other than Fijian at [facility]? No 02/20/2024 Do you want help with [...] Miscellaneous Notes * Telephone Encounter - La Stringer CMA - 07/01/2025 12:41 PM EST I called to verify dose of metoprolol 50 mg. Patient states she began taking half tablet (25 mg) inthe morning and half tablet (25 mg) in the afternoon. Rx was sent to [facility] as requested I also sent refill in for magnesium to [facility]. Patient expressed appreciation for the call and had no other needs at this time. E SPECIALIST * Telephone Encounter - Radha Travon - 07/01/2025 9:45 AM EST Patient calling needs refill on Metoprolol and it needs to go to [facility] Patient also needs refill on her Magnesium and it needs to go to [facility] E SPECIALIST documented in this encounter Plan of Treatment Upcoming Encounters Date Type Department Care Team (Late st Contact Info) Description 08/05/2025 9:30 AM EST Office Visit [facility] Cardiology [address] [place], [place] [phone] Axel Ny MD [address] [address], [address] [address] 10/23/2025 9:30 AM EST Office Visit [facility] Electrophysiology [address] [place] [address] Erick Severino MD [address] [place] [address] [address] [place] [address] documented as of this encounter Visit Diagnoses Diagnosis CHF (congestive heart failure) (HCC) Congestive heart failure, unspecified documented in this encounter Care Teams Reinforcement Maker Relationship Specialty Start Date End Date Amadeo Foster MD [address] [place] [address] [place] [address] PCP - General General Internal Medicine 08/05/22 Axel Ny MD [address] [address], [facility] [address] [place] [address] Interventional Cardiology 10/22/24 documented as of this encounter
--- OUTSIDE RECORDS SUMMARY | 2025-07-10 16:51 | XMS_ITS | Referral Summary ---
Author Organization [employer] ([place], [place], [place], [place], [place]) Address [address] [place] [address] Care Team Providers Care Senior Consumer Insights Consultant Name Role Phone Amadeo Foster MD Primary Care Provider [phone] Axel Ny MD Unavailable Encounters Date Type Department Care Team Description 07/01/2025 Telephone [facility] Cardiology [address] [place] [address] Axel Ny MD Medication Refill 04/19/2025 Travel 04/19/2025 9:15 AM EDT Office Visit [facility] Electrophysiology [address] [place] [address] Erick Severino MD Encounter for adjustment or management of cardiac device (Primary Dx); Paroxysmal atrial fibrillation (HCC); Persistent atrial fibrillation (HCC) 04/10/2025 3:00 AM EDT Clinical Support [facility] Electrophysiology [address] [place] [address] Erick Severino MD Encounter for adjustment or management of cardiac device (Primary Dx); Cardiac pacemaker in situ; SSS (sick sinus syndrome) (HCC); Atrial fibrillation, persistent (HCC) from Last 3 Months Allergies No known [...] (three) times daily as needed. 4 Active sacubitriL-emelina sartan (Entresto) 24-26 mg tabletIndicati ons:CHF (congestive heart failure) ([facility]) Take 1 tablet by mouth 2 (two) times daily. 180 tablet 2 5 Active Additional Information Patient taking differently:1 tablet oralDaily, Patient only takes one tablet daily due to low blood pressure, Reported on 04/19/2025 levothyroxine (SYNTHROID) 75 MCG tablet Take 1 tablet (75 mcg total) by mouth Daily (0600). Active dofetilide (TIKOSYN) 500 MCG capsuleIndicat ions:SSS (sick sinus syndrome) ([facility]) Take 1 capsule (500 mcg total) by mouth 2 (two) times daily. 180 capsule 4 5 Active apixaban (Eliquis) 5 mg tab tablet Take 1 tablet (5 mg total) by mouth 2 (two) times daily. 180 tablet 3 5 Active empagliflozin (JARDIANCE) 10 mg tabletIndicati ons:CHF (congestive heart failure) ([facility]) Take 1 tablet (10 mg total) by mouth in the morning. 90 tablet 3 5 Active potassium chloride (KLOR-CON) 10 MEQ tabletIndicati ons:CHF (congestive heart failure) (HCC) Take 1 tablet (10 mEq total) by mouth daily. 90 tablet 3 5 Active furosemide (LASIX) 20 MG tabletIndicati ons:CHF (congestive heart failure) (HCC) Take 1 tablet (20 mg total) by mouth daily. 90 tablet 3 5 Active metoprolol succinate (Toprol XL) 50 MG 24 hr tabletIndicati ons:CHF (congestive heart failure) (HCC) Take 0.5 tablets (25 mg total) by mouth 2 (two) times daily. 90 tablet 2 5 Active magnesium oxide (MAG-OX) 400 mg tablet Take 1 tablet (400 mg total) by mouth daily. 90 tablet 3 5 Active magnesium oxide (MAG-OX) 400 mg tablet Take 1 tablet by mouth once daily 90 tablet 3 4 07/01/20 25 Discontin ued(Reord er) metoprolol succinate (Toprol XL) 50 MG 24 hr tabletIndicati ons:CHF (congestive heart failure) (HCC) Take 1 tablet (50 mg total) by mouth daily. 90 tablet 1 5 07/01/20 25 Discontin ued(Reord er) Active Problems Problem Noted Date Diagnosed Date Encounter for adjustment or management of cardia c device 09/20/2024 Atrial fibrillation, persistent 02/15/2024 Overview (05/05/2024): H.o DCCV Tikosyn and Eliquis Primary hypertension 11/05/2022 SSS (sick sinus syndrome) 10/09/2021 Cardiac pacemaker in situ Mixed hyperlipidemia Coronary artery disease invo lving [place] coronary artery of [place] heart without angina pectoris Resolved Problems Problem Noted Date Diagnosed Date Resolved Date Vertigo 07/07/2023 05/05/2024 Nasal bone fracture 07/07/2023 05/05/20 24 Atrial fibrillation and flutter 07/06/2023 05/05/2024 At risk for sleep apnea 11/05/2022 11/0 04/2023 Encounter for cardioversion procedure 11/05/2022 05/05/2024 Encounter for general adult medical examination without abnormal findings 11/05/2022 Hypothyroidism 11/05/2022 07/07/2023 correction (current) use of anticoagulants 10/09/2021 07/07/2023 Other usp (current) drug therapy 10/09/2021 05/05/2024 Hypomagnesemia 07/01/2021 [...] your living situation today? I have a [facility] place to live 02/20/2024 Think about the [...] speak a language other than Fijian at [facility]? No 02/20/2024 Do you want [...] Sign Reading Time Taken Comments Blood Pressure 124/78 04/19/2025 9:33 AM EDT Pulse 80 04/19/2025 9:33 AM EDT Temperature 36.8 C (98.3 F) 01/08/2025 2:09 PM EDT Respiratory Rate 20 01/08/2025 7:00 PM EDT Oxygen Saturation 98% 04/19/2025 9:33 AM EDT Inhaled Oxygen Concentration - - Weight 73.1 kg (161 lb 3.2 oz) 04/19/2025 9:33 A M EDT Height 154.9 cm (5' 1 ) 04/19/2025 9:33 AM EDT Body Mass Index 30.46 04/19/2025 9:33 AM EDT Functional Status * Are you [...] Description 08/05/2025 9:30 AM EST Office Visit [facility] Cardiology [address] [place] [address] Axel Ny MD [address] [place] [address], [facility] [address] [place] [address] 10/23/2025 9:30 AM EST Office Visit [facility] Electrophysiology [address] [place], [place] [phone] [place] [address] [place] [address] [address] [place] [address] Medical Devices Implanted Type Area Shape Brick Molder Device Identifier Shelf Expiration Date Model / Serial / Lot Pacemaker Assurity Mri [facility] [id number] - [id number] Implanted:Qt y: 1 on 01/08/2025 by Erick Severino MD at [facility] PACEMAKER/ICD CHAMBER DEVICE Left: Chest ST SADAF MED:CARDIAC RHYM MGMT [id number] 10/26/2025 [id number] / [id number] / Pacemakers-1 10/01/2012 Implanted: (Quantity not on file) Pacemakers [employer] 1210 / [id number] / Description:OV -6- DEVYN -8 MO LEFT Procedures Procedure Name Priority Date/Time Associated Diagnosis Comments EXTERNAL LAB - MISC Routine 04/22/2025 9:16 AM EDT FS_MODEL_IP_ECG 12-LEAD Routine 04/19/2025 9:31 AM EDT Encounter for adjustment or management of cardiac device from Last 3 Months Results * EXTERNAL LAB - MISC (04/22/2025 9:16 AM EDT) [facility] Provider LAB BLOOD ORDERABLES Chen l Result * ECG 12 lead (04/19/2025 9:31 AM EDT) Erick Severino MD ECG ORDERABLES Final Result from Last 3 Months Insurance MEDICARE [place] [address] [place] [address] Advance Directives For more information, please contact: [phone] * Full Code (Latest Code Status on File) Date Activated Date Inactivated Comments 01/08/2025 12:43 PM 01/09/2025 4:27 AM * Full Code Date Activated Date Inactivated Comments 02/20/2024 2:52 PM 02/23/2024 3:23 PM If no pulse: No intervention If has pulse: Use intubation, mechanical ventilation, defibrillation, ACLS medications, or cardioversion as indicated. Call APARTMENT COMMUNITY MANAGER * Full Code Date Activated Date Inactivated Comments 02/20/2024 2:15 PM 02/20/2024 2:51 PM * Full Code Date Activated Date Inactivated Comments 02/15/2024 3:31 PM 02/16/2024 11:42 AM * Full Code Date Activated Date Inactivated Comments 07/07/2023 11:09 AM 07/08/2023 12:09 PM Care Teams Senior Consumer Insights Consultant Relationship Specialty Start Date End Date Amadeo Foster MD [address] [place] [address] PCP - General General Internal Medicine 08/05/22 Axel Ny MD [address] [facility], [facility] [address] [place] [phone] Interventional Cardiology 10/22/24
--- OUTSIDE RECORDS SUMMARY | 2025-07-10 16:51 | XMS_ITS | Clinical Summary ---
Author Organization [facility] Address [facility] [place] [address] Care Team Providers Care Salvage Mechanic Name Role Phone Unknown, Attending Provider Primary [...] therelease of HIV test results or diagnoses. [id number] Health Allergies No known active allergies [...] 2 - PCV20 or PCV21) 09/03/2020 09/03/2019 Depression Screening 12/05/2024 12/06/2023 Immunization: COVID-19 ( season) 2025 07/15/2021, 11/09/2020, 10/12/2020 Immunization: Influenza (MyC [place]) (#1) 2025 06/12/2021, 06/19/2020, 09/03/2019 Immunization: RSV (Adult) (1 - 1-dose 75+ series) 2027 Insurance MEDICARE A AND B Member Subscriber Plan / Payer (Ef fective 2017-Present) Name:Phyllis Choi Alpa Relation to Subscriber:Self Name:Phyllis Choi Alpa Payer ID:[id number] Group ID:Not on file Type:Medicare Address: [facility] [id number] Care Teams Salvage Mechanic Relationship Specialty Start Date End Date Unknown, Attending Provider PCP - General 12/26/23
--- OUTSIDE RECORDS SUMMARY | 2025-07-10 16:51 | XMS_ITS | Clinical Summary ---
Author Organization [employer] ([place], [place], [place], [place], [place]) Address [address] [place] [address] Care Team Providers Care Legal Cashier Name Role Phone Amadeo Foster MD Primary Care Provider [phone] Axel Ny MD Unavailable Allergies No known [...] 24-26 mg tabletIndicati ons:CHF (congestive heart failure) (HCC) Take [...] 500 MCG capsuleIndicat ions:SSS (sick sinus syndrome) ([facility]) Take 1 capsule (500 mcg total) by mouth 2 (two) times daily. 180 capsule 4 5 Active apixaban (Eliquis) 5 mg tab tablet Take 1 tablet (5 mg total) by mouth 2 (two) times daily. 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 angina pectoris Resolved Problems Problem Noted Date Diagnosed Date Resolved Date Vertigo 07/07/2023 05/05/2024 Nasal bone fracture 07/07/2023 05/05/20 24 Atrial fibrillation and flutter 07/06/2023 05/05/2024 At risk for sleep apnea 11/05/202204/2023 Encounter for cardioversion procedure 11/05/2022 05/05/2024 Encounter for general adult medical examination without abnormal findings 11/05/2022 Hypothyroidism 11/05/2022 07/07/2023 [facility]DC (current) use of anticoagulants 10/09/2021 07/07/2023 Other [facility]iary (current) drug therapy 10/09/2021 05/05/2024 Hypomagnesemia 07/01/2021 07/07/2023 Asymmetrical sensorineural hearing loss 07/18/2018 07/07/2023 Atrial fibrillation 07/07/20 23 Asthma 07/07/2023 On continuous oral anticoagulation 05/05/2024 Stented coronary artery 04/2023 Encounters Date Type Department Care Team Description 07/01/2025 Telephone [facility] Cardiology [address] [place] [address] Axel Ny MD Medication Refill 04/19/2025 9:15 AM EDT Office Visit [facility] Electrophysiology [facility] [place] [address] Erick Severino MD Encounter for adjustment or management of cardiac device (Primary Dx); Paroxysmal atrial fibrillation (HCC); Persistent atrial fibrillation (HCC) 04/19/2025 Travel 04/10/2025 3:00 AM EDT Clinical Support [facility] Electrophysiology [address] [place] [address] Erick Severino MD Encounter for adjustment or management of cardiac device (Primary Dx); Cardiac pacemaker in situ; SSS (sick sinus syndrome) (HCC); Atrial fibrillation, persistent (HCC) from Last 3 Months Family History Medical [...] your living situation today? I have a [facility] place to live 02/20/2024 Think about the [...] Do you speak a language other than Kenyan at [facility]? No 02/20/2024 Do you want help with [...] Mass Index 30.46 04/19/2025 9:33 AM EDT Plan of Treatment Upcoming Encounters Date Type Department Care Team (Late st Contact Info) Description 08/05/2025 9:30 AM EST Office Visit [facility] Cardiology [address] [place] [address] Axel Ny MD [address] [place] [address] Rd, [address] [place] [address] 10/23/2025 9:30 AM EST Office Visit [facility] Electrophysiology [address] [place] [address] Erick Severino MD [address] [place] [address] [address] [place] [address] Health Maintenance Due Date Last Done Comments [...] Pneumococcal 50+ years (2 of 2 - PPSV23, PCV20, or PCV21) 10/29/2019 09/03/2019 Falls Risk Screening 08/29/2024 COVID-19 VACCINE (2024-2 6 season) 2025 07/15/2021, 11/09/2020, 10/12/2020 Influenza Vaccine (#1) 2025 4, 06/12/2021, 06/19/2020, Additional history exists Tobacco Cessation Counseling and Screening (12+) 04/19/2026 04/19/2025 Medical Devices Implanted Type Area Kennel Hand Device Identifier Shelf Expiration Date Model / Serial / Lot Pacemaker [employer]urity Mri Sgl [id number] - [id number] Implanted:Qt y: 1 on 01/08/2025 by Erick Severino MD at [facility] PACEMAKER/ICD CHAMBER DEVICE Left: Chest ST SADAF MED:CARDIAC RHYM MGMT [id number] 10/26/2025 [id number] / [id number] / Pacemakers-1 10/01/2012 Implanted: (Quantity not on file) Pacemakers [employer] 1210 / [id number] / Description:OV 5-6-24 SHORTYRAT -8 MO LEFT Procedures Procedure Name Priority Date/Time Associated Diagnosis Comments EXTERNAL LAB - MISC Routine 04/22/2025 9:16 AM EDT FS_MODEL_IP_ECG 12-LEAD Routine 04/19/2025 9:31 AM EDT Encounter for adjustment or management of cardiac device from Last 3 Months Results * EXTERNAL LAB - MISC (04/22/2025 9:16 AM EDT) [facility] Provider LAB BLOOD ORDERABLES Chen l Result * ECG 12 lead (04/19/2025 9:31 AM EDT) Erick Severino MD ECG ORDERABLES Final Result from Last 3 Months Insurance MEDICARE PART A B Advance Directives For more information, please contact: [phone] * Full Code (Latest Code Status on File) Date Activated Date Inactivated Comments 01/08/2025 12:43 PM 01/09/2025 4:27 AM * Full Code Date Activated Date Inactivated Comments 02/20/2024 2:52 PM 02/23/2024 3:23 PM If no pulse: No intervention If has pulse: Use intubation, mechanical ventilation, defibrillation, ACLS medications, or cardioversion as indicated. Call CLERICAL ADJUSTER * Full Code Date Activated Date Inactivated Comments 02/20/2024 2:15 PM 02/20/2024 2:51 PM * Full Code Date Activated Date Inactivated Comments 02/15/2024 3:31 PM 02/16/2024 11:42 AM * Full Code Date Activated Date Inactivated Comments 07/07/2023 11:09 AM 07/08/2023 12:09 PM Care Teams Legal Cashier Relationship Specialty Start Date End Date Amadeo Foster MD [address] [place] [address] PCP - General General Internal Medicine 08/05/22 Axel Ny MD [address] [place] , [facility] [address] [place] [address] Interventional Cardiology 10/22/24
--- OUTSIDE RECORDS SUMMARY | 2025-07-10 16:51 | XMS_ITS | Clinical Summary ---
Author Organization [facility] Address [address] [id number] Care Team Providers Care Ecologist Name Role Phone Amadeo Foster MD Primary Care Provider [phone] Amadeo Foster MD Unavailable [phone] Allergies No known active allergies Medications [...] Health Maintenance Due Date Last Done Comments [facility]-Bone Density Scan 1952 [facility]-Depression Screening 1952 [facility]-Hepatitis C Screening 1952 [facility]-Medicare Annual Wellness (AWV) 1950 [facility]/Child/Adol SDOH Screenings 1950 [id number] Vaccine (#1) 1957 [facility]- SDOH Screenings 1970 [...] age to complete this topic Insurance MEDICARE [facility] MEDICARE PERRY Care Teams Ecologist Relationship Specialty Start Date End Date Amadeo Foster MD [address] [place] [address] PCP - General 08/16/23 Amadeo Foster MD [address] [place] [address] 08/16/23
[2025-07-10 19:09] LABS: C. difficile PCR (HMH) Negative (Negative)
== END 2025-07-10 23:59 | disposition home or self-care (01) ==
LOC: LAB.DROPOF 16:49
PROVIDERS: PCP Internal Medicine; Visit Provider Internal Medicine
DX: R19.7 Diarrhea, unspecified (principal)
CPT/HCPCS: 87493

== ENCOUNTER 2025-07-11 06:53 | Outpatient (CLI) | payer MEDICARE, OTHER, SELFPAY ==
--- OUTSIDE RECORDS SUMMARY | 2025-04-10 02:00 | XMS_ITS | Encounter Summary ---
Author Organization [employer] ([place], [place], [place], [place], [place]) Address [address] [place] [address] Care Team Providers Care Foreign Language Interpreter Name Role Phone Amadeo Foster MD Primary Care Provider [phone] Axel Ny MD Unavailable Reason for Visit * Reason Comments Pacemaker /ICD Home Monitoring Encounter Details Date Type Department Care Team (Late st Contact Info) Description 04/10/2025 3:00 AM EDT Clinical Support [facility] Electrophysiology [address] [place] [phone] Erick Severino MD [address] [facility] [address] [place] [address] Encounter for adjustment or management of cardiac [...] Do you speak a language other than [place] Islander at [facility]? No 02/20/2024 Do you want help [...] Description 08/05/2025 9:30 AM EST Office Visit [facility] Cardiology [address] [place] [phone] Axel Ny MD [address] [facility], [facility] [address] [place] [address] 10/23/2025 9:30 AM EST Office Visit [facility] Electrophysiology [address] [place] [phone] Erick Severino MD [address] [facility] [address] [place] [address] documented as of this encounter Visit Diagnoses Diagnosis Encounter for adjustment or management of cardiac device- Primary Cardiac pacemaker in situ SSS (sick sinus syndrome) (HCC) Sinoatrial node dysfunction Atrial fibrillation, persistent (HCC) documented in this encounter Care Teams Foreign Language Interpreter Relationship Specialty Start Date End Date Amadeo Foster MD [address] [place] [address] [place] [address] PCP - General General Internal Medicine 08/05/22 Axel Ny MD [address] [place] , [facility] [address] [place] [address] Interventional Cardiology 10/22/24 documented as of this encounter
--- OUTSIDE RECORDS SUMMARY | 2025-07-11 06:56 | XMS_ITS | Clinical Summary ---
Author Organization [employer] ([place], [place], [place], [place], [place]) Address [address] [place] [address] Care Team Providers Care Manager Clinic Name Role Phone Amadeo Foster MD Primary Care Provider [phone] Axel Ny MD Unavailable Allergies No known [...] 500 MCG capsuleIndicat ions:SSS (sick sinus syndrome) ([facility]) Take 1 capsule (500 mcg total) by [...] Mixed hyperlipidemia Coronary artery disease invo lving [place] coronary artery of [place] heart without angina pectoris Resolved Problems Problem Noted Date Diagnosed Date Resolved Date Vertigo 07/07/2023 05/05/2024 Nasal bone fracture 07/07/2023 05/05/20 24 Atrial fibrillation and flutter 07/06/2023 05/05/2024 At risk for sleep apnea 11/05/202204/2023 Encounter for cardioversion procedure 11/05/2022 05/05/2024 Encounter for general adult medical examination without abnormal findings 11/05/2022 Hypothyroidism 11/05/2022 07/07/2023 senior living (current) use of anticoagulants 10/09/2021 07/07/2023 Other residential (current) drug therapy 10/09/2021 05/05/2024 Hypomagnesemia 07/01/2021 07/07/2023 Asymmetrical sensorineural hearing loss 07/18/2018 07/07/2023 Atrial fibrillation 07/07/20 23 Asthma 07/07/2023 On continuous oral anticoagulation 05/05/2024 Stented coronary artery 04/2023 Encounters Date Type Department Care Team Description 07/01/2025 Telephone [facility] Cardiology [address] [place] [address] Axel Ny MD Medication Refill 04/19/2025 9:15 AM EDT Office Visit [facility] Electrophysiology [facility] [place] [address] Erick Severino MD Encounter for adjustment or management of cardiac device (Primary Dx); Paroxysmal atrial fibrillation (HCC); Persistent atrial fibrillation (HCC) 04/19/2025 Travel 04/10/2025 3:00 AM EDT Clinical Support [facility] Electrophysiology [address] [place] [address] Erick Severino MD Encounter for [...] your living situation today? I have a [facility] place to live 02/20/2024 Think about [...] Do you speak a language other than Algerian at [facility]? No 02/20/2024 Do you want help with [...] Description 08/05/2025 9:30 AM EST Office Visit [facility] Cardiology [address] [place] [address] Axel Ny MD [address] [place] [address] Rd, [address] [place] [address] 10/23/2025 9:30 AM EST Office Visit [facility] Electrophysiology [address] [place] [address] Erick Severino MD [address] [place] [address] [address] [place] [address] Health Maintenance Due Date Last [...] 04/19/2026 04/19/2025 Medical Devices Implanted Type Area Boarder Steam Device Identifier Shelf Expiration Date Model / Serial / Lot Pacemaker [employer] Mri Sgl [id number] - [id number] Implanted:Qt y: 1 on 01/08/2025 by Erick Severino MD at [facility] PACEMAKER/ICD CHAMBER DEVICE Left: Chest ST SADAF MED:CARDIAC RHYM MGMT [id number] 10/26/2025 [id number] / [id number] / Pacemakers-1 10/01/2012 Implanted: (Quantity not on file) Pacemakers [employer] 1210 / [id number] / Description:OV 5-6-24 SHORTYRAT -8 MO LEFT Procedures Procedure Name Priority Date/Time Associated Diagnosis Comments EXTERNAL LAB - MISC Routine 04/22/2025 9:16 AM EDT FS_MODEL_IP_ECG 12-LEAD Routine 04/19/2025 9:31 AM EDT Encounter for adjustment or management of cardiac device from Last 3 Months Results * EXTERNAL LAB - MISC (04/22/2025 9:16 AM EDT) [facility] Provider LAB BLOOD ORDERABLES Chen l Result * ECG 12 lead (04/19/2025 9:31 AM EDT) Erick Severino MD ECG ORDERABLES Final Result from Last 3 Months Insurance MEDICARE PART A B Advance Directives For more information, please contact: [phone] * Full Code (Latest Code Status on File) Date Activated Date Inactivated Comments 01/08/2025 12:43 PM 01/09/2025 4:27 AM * Full Code Date Activated Date Inactivated Comments 02/20/2024 2:52 PM 02/23/2024 3:23 PM If no pulse: No intervention If has pulse: Use intubation, mechanical ventilation, defibrillation, ACLS medications, or cardioversion as indicated. Call CLUB ROOM ATTENDANT * Full Code Date Activated Date Inactivated Comments 02/20/2024 2:15 PM 02/20/2024 2:51 PM * Full Code Date Activated Date Inactivated Comments 02/15/2024 3:31 PM 02/16/2024 11:42 AM * Full Code Date Activated Date Inactivated Comments 07/07/2023 11:09 AM 07/08/2023 12:09 PM Care Teams Manager Clinic Relationship Specialty Start Date End Date Amadeo Foster MD [address] [place] [address] PCP - General General Internal Medicine 08/05/22 Axel Ny MD [address] [place] , [facility] [address] [place] [address] Interventional Cardiology 10/22/24
--- OUTSIDE RECORDS SUMMARY | 2025-07-11 06:56 | XMS_ITS | Referral Summary ---
Author Organization [employer] ([place], [place], [place], [place], [place]) Address [address] [place] [address] Care Team Providers Care Prepared Foods Service Team Member Name Role Phone Amadeo Foster MD Primary Care Provider [phone] Axel Ny MD Unavailable Encounters Date Type Department Care Team Description 07/01/2025 Telephone [facility] Cardiology [address] [place] [phone] Axel Ny MD Medication Refill 04/19/2025 Travel 04/19/2025 9:15 AM EDT Office Visit [facility] Electrophysiology [address] [place] [phone] Erick Severino MD Encounter for adjustment or management of cardiac device (Primary Dx); Paroxysmal atrial fibrillation (HCC); Persistent atrial fibrillation (HCC) 04/10/2025 3:00 AM EDT Clinical Support [facility] Electrophysiology [address] [place] [phone] Erick Severino MD Encounter for adjustment [...] 24-26 mg tabletIndicati ons:CHF (congestive heart failure) ([facility]) Take 1 tablet by mouth 2 (two) times daily. 180 tablet 2 5 Active Additional Information Patient taking differently:1 tablet oralDaily, Patient only takes one tablet daily due to low blood pressure, Reported on 04/19/2025 levothyroxine (SYNTHROID) 75 MCG tablet Take 1 tablet (75 mcg total) by mouth Daily (0600). Active dofetilide (TIKOSYN) 500 MCG capsuleIndicat ions:SSS (sick sinus syndrome) ([facility]) Take 1 capsule (500 mcg total) by mouth 2 (two) times daily. 180 capsule 4 5 Active apixaban (Eliquis) 5 mg tab tablet Take 1 tablet (5 mg total) by mouth 2 (two) times daily. 180 tablet 3 5 Active empagliflozin (JARDIANCE) 10 mg tabletIndicati ons:CHF (congestive heart failure) ([facility]) Take 1 tablet (10 mg total) by [...] Mixed hyperlipidemia Coronary artery disease invo lving [facility] coronary artery of [facility] heart without angina pectoris Resolved Problems Problem Noted Date Diagnosed Date Resolved Date Vertigo 07/07/2023 05/05/2024 Nasal bone fracture 07/07/2023 05/05/20 24 Atrial fibrillation and flutter 07/06/2023 05/05/2024 At risk for sleep apnea 11/05/2022 11/0 04/2023 Encounter for cardioversion procedure 11/05/2022 05/05/2024 Encounter for general adult medical examination without abnormal findings 11/05/2022 Hypothyroidism 11/05/2022 07/07/2023 [facility] (current) use of anticoagulants 10/09/2021 07/07/2023 Other assisted (current) drug therapy 10/09/2021 05/05/2024 Hypomagnesemia 07/01/2021 [...] your living situation today? I have a [facility] place to live 02/20/2024 Think about [...] Do you speak a language other than Finnish at [facility]? No 02/20/2024 Do you want help [...] Description 08/05/2025 9:30 AM EST Office Visit [facility] Cardiology [address] [place] [phone] Axel Ny MD [address] [place] [address], [facility] [address] [place] [address] 10/23/2025 9:30 AM EST Office Visit [facility] Electrophysiology [address] [place], [place] [phone] [place] [address] [place] [address] [address] [place] [address] Medical Devices Implanted Type Area Office Helper Clerical Device Identifier Shelf Expiration Date Model / Serial / Lot Pacemaker Assurity Mri [facility] [id number] - [id number] Implanted:Qt y: 1 on 01/08/2025 by Erick Severino MD at [facility] PACEMAKER/ICD CHAMBER DEVICE Left: Chest [facility] [employer] MED:CARDIAC RHYM MGMT [id number] 10/26/2025 [id number] / [id number] / Pacemakers-1 10/01/2012 Implanted: (Quantity not on file) Pacemakers [employer] [id number] / [id number] / Description:OV -6- DEVYN -8 MO LEFT Procedures Procedure Name Priority Date/Time Associated Diagnosis Comments EXTERNAL LAB - MISC Routine 04/22/2025 9:16 AM EDT FS_MODEL_IP_ECG 12-LEAD Routine 04/19/2025 9:31 AM EDT Encounter for adjustment or management of cardiac device from Last 3 Months Results * EXTERNAL LAB - MISC (04/22/2025 9:16 AM EDT) [facility] Provider LAB BLOOD ORDERABLES Chen l Result * ECG 12 lead (04/19/2025 9:31 AM EDT) Ercik Severino MD ECG ORDERABLES Final Result from Last 3 Months Insurance MEDICARE PART [place] [id number] Advance Directives For more information, please contact: [phone] * Full Code (Latest Code Status on File) Date Activated Date Inactivated Comments 01/08/2025 12:43 PM 01/09/2025 4:27 AM * Full Code Date Activated Date Inactivated Comments 02/20/2024 2:52 PM 02/23/2024 3:23 PM If no pulse: No intervention If has pulse: Use intubation, mechanical ventilation, defibrillation, ACLS medications, or cardioversion as indicated. Call [employer] * Full Code Date Activated Date Inactivated Comments 02/20/2024 2:15 PM 02/20/2024 2:51 PM * Full Code Date Activated Date Inactivated Comments 02/15/2024 3:31 PM 02/16/2024 11:42 AM * Full Code Date Activated Date Inactivated Comments 07/07/2023 11:09 AM 07/08/2023 12:09 PM Care Teams Prepared Foods Service Team Member Relationship Specialty Start Date End Date Amadeo Foster MD [address] [place] [address] [place] [address] PCP - General General Internal Medicine 08/05/22 Axel Ny MD [address] [facility], [facility] [address] [place] [phone] Interventional Cardiology 10/22/24
--- OUTSIDE RECORDS SUMMARY | 2025-07-11 06:56 | XMS_ITS | Encounter Summary ---
Author Organization [employer] ([place], [place], [place], [place], [place]) Address [address] [place] [address] Care Team Providers Care Station Baggage Agent Name Role Phone Amadeo Foster MD Primary Care Provider [phone] Axel Ny MD Unavailable Reason for Visit * Reason Onset Date Comments Medication Refill 07/01/2025 Encounter Details Date Type Department Care Team (Late st Contact Info) Description 07/01/2025 Telephone [facility] Cardiology [address] [place] [address] Axel Ny MD [address] [facility], [facility] [address] [place] [address] Medication Refill Social History Tobacco [...] Do you speak a language other than Micronesian at [facility]? No 02/20/2024 Do you want help [...] in the afternoon. Rx was sent to [facility] as requested I also sent refill in for magnesium to [facility] pharmacy. Patient expressed appreciation for the call and had no other needs at this time. T RANCHER * Telephone Encounter - Radha Travon - 07/01/2025 9:45 AM EST Patient calling needs refill on Metoprolol and it needs to go to [facility] Patient also needs refill on her Magnesium and it needs to go to [facility] T RANCHER documented in this encounter Plan of Treatment Upcoming Encounters Date Type Department Care Team (Late st Contact Info) Description 08/05/2025 9:30 AM EST Office Visit [facility] Cardiology [address] [place], [place] [phone] Axel Ny MD [address], [address] [phone] 10/23/2025 9:30 AM EST Office Visit [facility] Electrophysiology [address] [place] [phone] Erick Severino MD [address] [place] [address] [address] [place] [address] documented as of this encounter Visit Diagnoses Diagnosis CHF (congestive heart failure) (HCC) Congestive heart failure, unspecified documented in this encounter Care Teams Station Baggage Agent Relationship Specialty Start Date End Date Amadeo Foster MD [address] [place] [address] [place] [address] PCP - General General Internal Medicine 08/05/22 Axel Ny MD [address], [facility] [address] [place] [address] Interventional Cardiology 10/22/24 documented as of this encounter
--- OUTSIDE RECORDS SUMMARY | 2025-07-11 06:56 | XMS_ITS | Clinical Summary ---
Author Organization [facility] Address [facility] [place] [address] Care Team Providers Care Match Maker Name Role Phone Unknown, Attending Provider Primary [...] therelease of HIV test results or diagnoses. [id number] Health Allergies No known active allergies Medications [...] Relation to Subscriber:Self Name:Phyllis Choi Alpa Payer ID:[id number] Group ID:Not on file Type:Medicare Address: [facility] [address] [address] Care Teams Match Maker Relationship Specialty Start Date End Date Unknown, Attending Provider PCP - General 12/26/23
--- OUTSIDE RECORDS SUMMARY | 2025-07-11 06:56 | XMS_ITS | Clinical Summary ---
Author Organization [facility] Address [address] [id number] Care Team Providers Care Head Grower Name Role Phone Amadeo Foster MD Primary Care Provider Amadeo Foster MD Unavailable [phone] Allergies No known active allergies Medications [...] Health Maintenance Due Date Last Done Comments [facility]-Bone Density Scan 1950 [facility]-Depression Screening 1952 [facility]-Hepatitis C Screening 1950 [facility]-Medicare Annual Wellness (AWV) 1950 [facility]/Child/Adol SDOH Screenings 1950 [id number] Vaccine (#1) 1957 [facility]- SDOH Screenings 1970 [...] age to complete this topic Insurance MEDICARE [place] [address] MEDICARE PERRY Care Teams Head Grower Relationship Specialty Start Date End Date Amadeo Foster MD [id number] [place] [address] PCP - General 08/16/23 Amadeo Foster MD [address] [place] [address] 08/16/23
--- NOTE | 2025-07-11 07:00 | CT_ITS ---
FINAL REPORT TECHNIQUE: Noncontrast exam This study was performed with techniques to keep radiation doses as low as reasonably achievable, (ALARA). Individualized dose reduction techniques using automated exposure control or adjustment of mA and/or kV according to the patient''s size were employed. CLINICAL HISTORY: Left lower quadrant pain, suspect diverticulitis COMPARISON: 07/07/2022 FINDINGS: Abdomen: Lungs demonstrate all calcified granulomatous disease. No acute findings. Solid abdominal organs are unremarkable. The gallbladder is present. The bowel is negative. There is a tiny umbilical hernia containing fat. Pelvis: The appendix is normal. A chronic left lower quadrant abdominal wall hernia containing fat is stable. There is mild diverticular disease in the distal colon without evidence of diverticulitis. Lobulated uterus is probably due to fibroids. IMPRESSION: Chronic changes without acute process. Reviewed, Interpreted and Dictated by Fab Ordonez MD Transcribed by Candie Kohli Authenticated and [facility]
== END 2025-07-11 23:59 | disposition home or self-care (01) ==
LOC: RAD 06:54
PROVIDERS: PCP Internal Medicine; Visit Provider Internal Medicine
DX: J98.4 Other disorders of lung (principal); K42.9 Umbilical hernia without obstruction or gangrene; K43.9 Ventral hernia without obstruction or gangrene; K57.30 Diverticulosis of large intestine without perforation or abscess without bleeding; R93.89 Abnormal findings on diagnostic imaging of other specified body structures
CPT/HCPCS: 74176